=== PATIENT | male | born 1940 | race Caucasian/White ===

== ENCOUNTER 2022-01-24 10:36 | Inpatient (IN) | payer OTHER ==
[2022-01-24 11:25] LABS: Absolute Lymphocytes (CBC) 0.1 K/uL (0.7-4.9); Hematocrit 37.7 % (39.6-49.0); Lymphocytes % 4.6 % (15.3-44.8); MCV 95.7 fL (80-100); MPV 8.2 fL (7.6-11.3); RBC Red Blood Cell Count 3.94 M/uL (4.33-5.43)
[2022-01-24 11:28] LABS: Protime INR 1.04
--- NOTE | 2022-01-24 11:52 | RAD REPORT ---
EXAM DESCRIPTION: CT - Head C Spine Cap Wo Con - 01/24/2022 11:36 am CLINICAL HISTORY: Head and neck injury with chest and abdominal pain status post fall TECHNIQUE: Computed axial tomography of head, neck, chest, abdomen and pelvis obtained. IV and oral contrast not requested. Coronal and sagittal reconstruction performed. All CT scans are performed using dose optimization technique as appropriate and may include automated exposure control or mA/KV adjustment according to patient size. COMPARISON: None FINDINGS: An intracranial bleed is not seen. The ventricles are normal in caliber. An extra-axial fluid collection is not noted. No significant hy podensity within the brain. Fluid within the sinuses/mastoids is not seen. A cervical fracture is not seen. No dislocation is noted. Moderate spondylosis involves the cervical spine The evaluation of mediastinum, keith, vessels, solid organs and bowel are limited secondary to the lac k of contrast administration. A mediastinal hematoma is not noted. A pleural effusion is not seen. A lung contusion is not present. The liver,spleen, pancreas, adrenals,kidneys and bladder do not demonstrate a traumatic injury Marked osteoarthritis involves the hips. IMPRESSION: No acute intracranial abnormality is seen. A cervical fracture is not visualized. If the patient continues have symptoms to suggest intracrania l/spinal cord pathology MRI be recommended No acute traumatic abnormality involving the chest/abdomen/pelvis.
--- NOTE | 2022-01-24 11:52 | RAD REPORT ---
EXAM DESCRIPTION: Jason Single View01/24/2022 11:22 am CLINICAL HISTORY: Chest pain COMPARISON: 2014 FINDINGS: The lungs appear clear of acute infiltrate. The heart is normal size IMPRESSION: No acute abnormalities displayed
[2022-01-24] MEDS ORDERED: ASPIRIN 81 MG CHEWABLE TABLET ONE (12:00)
[2022-01-24] MEDS ORDERED: NA CHLORIDE 0.9% 500 ML ONE (12:01)
[2022-01-24] MEDS ORDERED: METOPROLOL TARTRATE 5 MG/5 ML INJ IV ONE (12:01)
[2022-01-24] MEDS ORDERED: FENTANYL CITR 100 MCG/2 ML ONE (12:01)
[2022-01-24] MEDS ORDERED: NA CHLORIDE 0.9% 1,000 ML ONE ×2 (12:01→17:38)
[2022-01-24 12:05] LABS: Albumin 3.2 g/dL (3.4-5.0); Bilirubin Direct 0.4 mg/dL (0-0.2); Bilirubin Total 0.9 mg/dL (0.2-1.0); Potassium 3.7 mmol/L (3.5-5.1); Protein, Total 6.7 g/dL (6.4-8.2)
[2022-01-24 12:07] LABS: Magnesium 1.3 mg/dL (1.8-2.4)
[2022-01-24 12:08] LABS: Troponin High Sensitivity 81.5 pg/mL (<58.9)
[2022-01-24] MEDS ORDERED: ONDANSETRON 4 MG/2 ML VIAL ONE (12:33)
[2022-01-24] MEDS ORDERED: METOPROLOL TAR 25 MG TAB ONE (12:33)
[2022-01-24] MEDS ORDERED: Magnesium Sulfate 2gm IVPB 2 G/50 ML BAG IV ONE (12:34)
[2022-01-24] MEDS ORDERED: ENOXAPARIN 100 MG/ML SYR SQ ONE (12:34)
--- NOTE | 2022-01-24 12:42 | RAD REPORT ---
EXAM DESCRIPTION: RAD - Femur Right - 01/24/2022 12:07 pm CLINICAL HISTORY: PAIN COMPARISON: No comparisons FINDINGS: Severe osteoarthritis is present affecting the right hip with [id number]. Right total kn ee arthroplasty is present. No evidence of hardware loosening or infection. No fracture evident.
--- NOTE | 2022-01-24 12:42 | RAD REPORT ---
EXAM DESCRIPTION: RAD - Tib Fib Right - 01/24/2022 12:07 pm CLINICAL HISTORY: PAIN COMPARISON: No comparisons FINDINGS: Right total knee arthroplasty is present. No hardware loosening infection suspected. No fr acture or dislocation evident.
--- NOTE | 2022-01-24 13:02 | ER ---
Nurse's Notes [facility] Name: Kerline Tucker Age: 81 yrs Sex: Male : 1940 Arrival Date: 01/24/2022 Time: 10:42 Bed 17 Private MD: Diagnosis: Chest pain, unspecified;Altered mental status, unspecified;Tachycardia, unspecified;Hypomagnesemia;Bandemia;Neutropenia, unspecified Presentation: 01/24 10:42 Chief complaint: EMS states: patients family called stating that patient was having ko1 chest pain. EMS states patient had varying blood pressures and varying O2 sats. Coronavirus screen: Vaccine status: Patient reports being unvaccinated. At this time, the client does not indicate any symptoms associated with coronavirus-19. Ebola Screen: No symptoms or risks identified at this time. Initial Sepsis Screen: Does the patient meet any 2 criteria? No. Patient's initial sepsis screen is negative. Does the patient have a suspected source of infection? No. Patient's initial sepsis screen is negative. Risk Assessment: Do you want to hurt yourself or someone else? Patient reports no desire to harm self or others. Onset of symptoms was January 24, 2022. Care prior to arrival: Medication(s) given: Oxygen administered. via nasal cannula. Transition of care: patient was not received from another setting of care. 10:42 Method Of Arrival: EMS: [facility] ko1 10:42 Acuity: MARK 3 ko1 Triage Assessment: 10:51 General: Appears uncomfortable, Behavior is calm, cooperative, appropriate for age. ko1 Pain: Complains of pain in lateral aspect of right knee and right ankle. EENT: No deficits noted. Neuro: No deficits noted. Cardiovascular: Reports chest pain, Patient's skin is warm and dry. Pulses are all present. Historical: - Allergies: 10:51 No Known Allergies; ko1 - Home Meds: 10:51 Unable to obtain [Active]; ko1 - Immunization history:: Adult Immunizations unknown. - Social history:: Smoking status: Patient denies any tobacco usage or history of. Screenin:55 Abuse screen: Denies threats or abuse. Denies injuries from another. Nutritional ko1 screening: No deficits noted. Tuberculosis screening: No symptoms or risk factors identified. Fall Risk No fall in past 12 months (0 pts). Secondary diagnosis (15 points) impaired mobility, IV access (20 points). Ambulatory Aid- None/Bed Rest/Nurse Assist (0 pts). Gait- Impaired (20 pts.). Mental Status- Overestimates/Forgets Limitations (15 pts.). Total Crooks Fall Scale indicates High Risk Score (45 or more points). Fall prevention measures have been instituted. Side Rails Up X 2 Placed Close to Nursing Station As available patient and family educated on Fall Prevention Program and Strategies. Assessment: 10:55 General: Appears uncomfortable, Behavior is calm, cooperative, appropriate for age. ko1 Pain: Complains of pain in lateral aspect of right knee and right ankle. Neuro: poor historian. Cardiovascular: Reports chest pain. Respiratory: No deficits noted. GI: No deficits noted. : No deficits noted. EENT: No deficits noted. Derm: No deficits noted. Musculoskeletal: No deficits noted. 19:50 General: Appears comfortable, Behavior is calm, cooperative. Pain: Complains of pain in ha1 chest pain and generalized pain Pain currently is 4 out of 10 on a pain scale. Alleviated by medications. Neuro: Level of Consciousness is awake, alert, obeys commands, Oriented to person, situation. Cardiovascular: Reports chest pain, Heart tones S1 S2 Capillary refill < 3 seconds Patient's skin is warm and dry. Rhythm is sinus rhythm. Respiratory: Airway is patent Trachea midline Respiratory effort is even, unlabored, Respiratory pattern is regular, symmetrical. GI: No signs and/or symptoms were reported involving the gastrointestinal system. Abdomen is non-distended, obese, Bowel sounds present X 4 quads. Patient currently denies abdominal pain. : Reports not needing to urinate in the past seven hours. Vital Signs: 10:42 BP 141 / 76; Pulse 137; Resp 22; Temp 98.9; Pulse Ox 97% ; Weight 90.72 kg; Height 5 ko1 ft. 8 in. (172.72 cm); Pain 3/10; 11:00 BP 124 / 73; Pulse 135; Temp 98.9; Pulse Ox 100% ; Pain 10/10; ko1 11:30 BP 134 / 62; Pulse 137; ko1 11:45 BP 126 / 79; Pulse 123; ko1 12:15 BP 102 / 62; Pulse 95; ko1 12:45 BP 111 / 60; Pulse 92; Resp 18; Pulse Ox 100% ; ko1 14:09 BP 92 / 46; Pulse 77; Resp 18; Pulse Ox 98% ; ko1 15:00 BP 88 / 71; Pulse 98; Resp 18; Pulse Ox 96% ; ko1 16:00 BP 103 / 64; Pulse 77; ko1 17:00 BP 101 / 44; Pulse 72; ko1 18:00 BP 119 / 78; Pulse 78; ko1 19:50 BP 115 / 75; Pulse 81; Resp 19 S; Pulse Ox 100% on 2 lpm NC; ha1 10:42 Body Mass Index 30.41 (90.72 kg, 172.72 cm) ko1 ED Course: 10:42 Patient arrived in ED. tw2 10:42 Minda Blankenship, SHEYLA is Primary Nurse. ko1 10:51 Triage completed. ko1 10:55 Jose Miguel Billingsley MD is Attending Physician. [facility] 10:55 Patient has correct armband on for positive identification. Fall risk band placed. Bed ko1 in low position. Call light in reach. Side rails up X2. Client placed on continuous cardiac and pulse oximetry monitoring. NIBP monitoring applied. stave bolt equalizer on. Turned to back. 11:00 Inserted saline lock: 18 gauge in right antecubital area, using aseptic technique. ko1 Blood collected. 11:44 Acetaminophen Sent. ko1 11:44 ETOH Level Sent. ko1 11:44 Ptt, Activated Sent. ko1 11:44 Salicylate Sent. ko1 11:44 SARS-COV-2 RT PCR (Document "Date of Onset" if Symptomatic) Sent. ko1 11:44 Lipase Sent. ko1 11:44 Basic Metabolic Panel Sent. ko1 11:44 CBC with Diff Sent. ko1 11:44 LFT's Sent. ko1 11:44 Magnesium Sent. ko1 11:44 NT PRO-BNP Sent. ko1 11:44 PT-INR Sent. ko1 11:45 Troponin HS Sent. ko1 13:01 Dillon Santos is Hospitalizing Provider. [facility] 13:05 pt son......kerline tucker jr, . bd 15:01 Lactate Sent. ko1 17:19 Blood Culture Adult (2) Sent. ko1 21:10 No provider procedures requiring assistance completed. Patient admitted, IV remains in vc1 place. Administered Medications: 12:19 Drug: Lopressor (metoprolol) 5 mg Route: IVP; Site: right antecubital; ko1 12:20 Drug: NS 0.9% 500 ml Route: IV; Rate: bolus; Site: right antecubital; ko1 12:20 Drug: Aspirin 81 mg Route: PO; ko1 12:20 Drug: fentaNYL (PF) 25 mcg Route: IVP; Site: right antecubital; ko1 12:20 Drug: Zofran (Ondansetron) 4 mg Route: IVP; Site: right antecubital; ko1 12:25 Drug: Lopressor (metoprolol TARTRATE)) 25 mg Route: PO; ko1 12:32 Drug: Lovenox (enoxaparin) 1 mg/kg {Note: 90mg.} Route: Sub-Q; Site: right lower ko1 abdomen; 12:32 Drug: Magnesium Sulfate 2 grams Route: IVPB; Infused Over: 1 hrs; Site: right ko1 antecubital; 14:57 Drug: NS 0.9% 500 ml Route: IV; Rate: bolus; Site: right antecubital; ko1 16:23 Drug: NS 0.9% 500 ml Route: IV; Rate: bolus; Site: right antecubital; ko1 17:22 Drug: Rocephin (cefTRIAXone) 1 grams Route: IV; Rate: per protocol; Site: right ko1 antecubital; 17:29 Drug: NS 0.9% 1000 ml Route: IV; Rate: 125 ml/hr; Site: right antecubital; ko1 20:55 Not Given (Hemodynamic Parameters): Lopressor (metoprolol) 5 mg IVP once; Hold for SBP ha1 <100 or HR <60. Medication: 11:57 VIS not applicable for this client. ko1 Outcome: 13:02 Decision to Hospitalize by Provider. nancy 21:10 Admitted to Tele accompanied by nurse, via stretcher, room 417, [facility] to [facility] Bedside report given 21:10 Condition: good 21:10 Instructed on the need for admit. 21:11 Patient left the ED. 1 Signatures: Yuliana Valladares Corey, MD MD cha Wise, Tara, RN RN tw2 Nya Acharya RN RN 1 Barb Vanessa RN RN ha1 Minda Blankenship RN RN ko1 Corrections: (The following items were deleted from the chart) 11:58 11:30 Inserted saline lock: 18 gauge in right antecubital area, using aseptic margo technique. Blood collected. ko1 13:07 13:00 BP 124 / 73; Pulse 135bpm; Pulse Ox 100%; Temp 98.9F; Pain 10/10; ko1 ko1 13:21 11:44 THYROID STIMULAT HORMONE+C.LAB.HEIDE drawn and sent. ko1 EDMS
--- NOTE | 2022-01-24 13:03 | EDPHYS ---
Physician Documentation [facility] Name: Christina Tse Age: 81 yrs Sex: Male : 1940 Arrival Date: 01/24/2022 Time: 10:42 Bed 17 Private MD: ED Physician Jose Miguel Billingsley HPI: 01/24 11:30 This 81 yrs old Male presents to ER via EMS with complaints of ams,cp, right nancy leg pain. 11:30 The patient presents with decreased range of motion. The complaints affect the lateral nancy aspect of right thigh, lateral aspect of right knee, lateral aspect of right calf, right quadriceps, right knee and right rosado. Context: The problem was sustained at an unknown site. Onset: The symptoms/episode began/occurred at an unknown time. Modifying factors: The symptoms are alleviated by remaining still. Associated signs and symptoms: Pertinent positives: weakness. The patient or guardian reports chest pain that is located primarily in the anterior chest wall, bilaterally. ams, pain all over. The patient presents with confusion, decreased mental status, trouble concentrating. Possible causes: CVA or TIA, low blood sugar, seizure. The pain does not radiate. Associated signs and symptoms: The patient has no apparent associated signs or symptoms. Treatment prior to arrival includes: no previous treatment. Associated signs and symptoms: Pertinent positives: cough, dizziness, lightheadedness. The chest pain is described as aching. Historical: - Allergies: 10:51 No Known Allergies; ko1 - Home Meds: 10:51 Unable to obtain [Active]; ko1 - Immunization history:: Adult Immunizations unknown. - Social history:: Smoking status: Patient denies any tobacco usage or history of. ROS: 11:34 Constitutional: Negative for fever, chills, and weight loss, Eyes: Negative for injury, nancy pain, redness, and discharge, ENT: Negative for injury, pain, and discharge, Neck: Negative for injury, pain, and swelling, Back: Negative for injury and pain, : Negative for injury, bleeding, discharge, and swelling, Skin: Negative for injury, rash, and discoloration, Psych: Negative for depression, anxiety, suicide ideation, homicidal ideation, and hallucinations, Allergy/Immunology: Negative for hives, rash, and allergies, Endocrine: Negative for neck swelling, polydipsia, polyuria, polyphagia, and marked weight changes, Hematologic/Lymphatic: Negative for swollen nodes, abnormal bleeding, and unusual bruising. 11:34 Cardiovascular: Positive for chest pain. 11:34 Respiratory: Positive for shortness of breath. 11:34 Abdomen/GI: Positive for abdominal pain, of the suprapubic area, right upper quadrant, left upper quadrant, right lower quadrant and left lower quadrant. 11:34 MS/extremity: Positive for decreased range of motion, pain, tenderness, of the right leg. Exam: 11:34 Constitutional: This is a well developed, well nourished patient who is awake, alert, nancy and in no acute distress. Head/Face: Normocephalic, atraumatic. Eyes: Pupils equal round and reactive to light, extra-ocular motions intact. Lids and lashes normal. Conjunctiva and sclera are non-icteric and not injected. Cornea within normal limits. Periorbital areas with no swelling, redness, or edema. ENT: Nares patent. No nasal discharge, no septal abnormalities noted. Tympanic membranes are normal and external auditory canals are clear. Oropharynx with no redness, swelling, or masses, exudates, or evidence of obstruction, uvula midline. Mucous membranes moist. Neck: Trachea midline, no thyromegaly or masses palpated, and no cervical lymphadenopathy. Supple, full range of motion without nuchal rigidity, or vertebral point tenderness. No Meningismus. Chest/axilla: Normal chest wall appearance and motion. Nontender with no deformity. No lesions are appreciated. Respiratory: Lungs have equal breath sounds bilaterally, clear to auscultation and percussion. No rales, rhonchi or wheezes noted. No increased work of breathing, no retractions or nasal flaring. Abdomen/GI: Soft, non-tender, with normal bowel sounds. No distension or tympany. No guarding or rebound. No evidence of tenderness throughout. Back: No spinal tenderness. No costovertebral tenderness. Full range of motion. Skin: Warm, dry with normal turgor. Normal color with no rashes, no lesions, and no evidence of cellulitis. Psych: Awake, alert, with orientation to person, place and time. Behavior, mood, and affect are within normal limits. 11:34 Neck: ROM/movement: is normal, no acute changes, limited range of motion, is not appreciated, Meningeal signs: are not present, Kernig's sign is negative, Brudzinski's sign is negative, nuchal rigidity, is not appreciated. 11:34 Cardiovascular: Rate: tachycardic, Rhythm: regular, Pulses: Pulses are 4+ in bilateral radial, brachial, femoral, popliteal, posterior tibial and and dorsalis pedis arteries.. Heart sounds: normal, Edema: is not appreciated, JVD: is not appreciated. 11:34 ECG was reviewed by the Attending Physician. 11:34 Musculoskeletal/extremity: ROM: limited active range of motion, limited passive range of motion, limited active range of motion due to pain, limited passive range of motion due to pain, Circulation is intact in all extremities. Sensation intact. Compartment Syndrome exam of affected extremity: is normal. DVT Exam: no swelling, no tenderness, negative Homans' sign noted on exam, no appreciated bluish discoloration, no erythema, no increased warmth, pain. Vital Signs: 10:42 BP 141 / 76; Pulse 137; Resp 22; Temp 98.9; Pulse Ox 97% ; Weight 90.72 kg; Height 5 ko1 ft. 8 in. (172.72 cm); Pain 3/10; 11:00 BP 124 / 73; Pulse 135; Temp 98.9; Pulse Ox 100% ; Pain 10/10; ko1 11:30 BP 134 / 62; Pulse 137; ko1 11:45 BP 126 / 79; Pulse 123; ko1 12:15 BP 102 / 62; Pulse 95; ko1 12:45 BP 111 / 60; Pulse 92; Resp 18; Pulse Ox 100% ; ko1 14:09 BP 92 / 46; Pulse 77; Resp 18; Pulse Ox 98% ; ko1 15:00 BP 88 / 71; Pulse 98; Resp 18; Pulse Ox 96% ; ko1 16:00 BP 103 / 64; Pulse 77; ko1 17:00 BP 101 / 44; Pulse 72; ko1 18:00 BP 119 / 78; Pulse 78; ko1 19:50 BP 115 / 75; Pulse 81; Resp 19 S; Pulse Ox 100% on 2 lpm NC; ha1 10:42 Body Mass Index 30.41 (90.72 kg, 172.72 cm) ko1 MDM: 10:55 Patient medically screened. nancy 11:43 Differential diagnosis: contusion, tendonitis, abnormal EKG, acute pericarditis, nancy anxiety, coronary artery disease Cholelithiasis costochondritis, pancreatitis, peptic ulcer disease, stable angina, unstable angina. Differential Diagnosis altered mental status. HEART Score: History: Slightly Suspicious (0), ECG: Non specific repolarization disturbance / LBTB / PM (1), Age: > or = 65 years (2), Risk Factors: > or = 3 Risk factors for atherosclerotic disease (2), [Hypercholesterolemia] [Hypertension] [+ Family HX] [Obesity] Troponin: < or = 1 x Normal Limit (0). Differential Diagnosis: CVA, electrolyte abnormality, alcohol intoxication, intracranial bleed, seizure, TIA, UTI, volume depletion. The patient was given aspirin in the Emergency Department. The patient's deep vein thrombosis risk score was calculated as follows: Total Score: 0. This patient was found to be at low risk for a deep vein thrombosis by using the Well's assessment criteria. The patient's pulmonary embolism risk score was calculated as follows: the patients heart rate is greater than 100 beats per minute (1.5 Pts) patient has experienced immobilization or surgery in the last four weeks (1.5 Pts) Total Score: 3-6 points. This patient was found to be at moderate risk for a pulmonary embolism by using the Well's assessment criteria. JAN Risk Score: 1 - patient's age is greater or equal to 65 years, 1 - Three or more CAD risk factors, 1- Known CAD, TOTAL SCORE = 3. Data reviewed: vital signs, nurses notes, lab test result(s), EKG, radiologic studies, CT scan, plain films. Data interpreted: log hauler: rate is 137 beats/min, rhythm is regular, Pulse oximetry: on room air is 97 %. Test interpretation: by ED physician or midlevel provider: ECG, plain radiologic studies. 01/24 10:54 Order name: Basic Metabolic Panel 01/24 10:54 Order name: CBC with Diff 01/24 10:54 Order name: LFT's 01/24 10:54 Order name: Magnesium 01/24 10:54 Order name: NT PRO-BNP 01/24 10:54 Order name: PT-INR 01/24 10:54 Order name: Troponin HS 01/24 10:54 Order name: Lipase 01/24 10:54 Order name: SARS-COV-2 RT PCR (Document "Date of Onset" if Symptomatic) [facility] 01/24 11:20 Order name: Acetaminophen; Complete Time: 14:31 [facility] 01/24 11:20 Order name: ETOH Level; Complete Time: 14:31 [facility] 01/24 11:20 Order name: Ptt, Activated; Complete Time: 14:31 [facility] 01/24 11:20 Order name: Salicylate; Complete Time: 14:31 [facility] 01/24 11:20 Order name: Urine Drug Screen [facility] 01/24 11:28 Order name: Protime (+INR); Complete Time: 11:57 [facility] 01/24 11:47 Order name: CBC with Automated Diff [facility] 01/24 11:58 Order name: SARS-COV-2 RT PCR; Complete Time: 12:09 [facility] 01/24 12:08 Order name: Basic Metabolic Panel; Complete Time: 12:09 [facility] 01/24 12:08 Order name: Liver (Hepatic) Function; Complete Time: 12:09 [facility] 01/24 12:08 Order name: Troponin High Sensitivity; Complete Time: 12:09 [facility] 01/24 12:08 Order name: NT PRO-BNP; Complete Time: 12:09 [facility] 01/24 12:08 Order name: Magnesium; Complete Time: 12:09 [facility] 01/24 12:08 Order name: Lipase; Complete Time: 12:09 [facility] 01/24 13:21 Order name: Thyroid Stimulating Hormone; Complete Time: 14:31 [facility] 01/24 13:27 Order name: Manual Differential [facility] 01/24 14:37 Order name: Lactate [facility] 01/24 15:50 Order name: Lactate; Complete Time: 17:22 [facility] 01/24 15:55 Order name: Blood Culture Adult (2) [facility] 01/24 19:19 Order name: Lactate Sepsis 2 HR Follow-up [facility] 01/24 10:54 Order name: XRAY Chest (1 view) [facility] 01/24 10:54 Order name: EKG; Complete Time: 10:55 [facility] 01/24 10:54 Order name: Cardiac monitoring; Complete Time: 11:45 [facility] 01/24 10:54 Order name: EKG - Nurse/Tech; Complete Time: 11:45 [facility] 01/24 10:54 Order name: IV Saline Lock; Complete Time: 11:45 [facility] 01/24 10:54 Order name: Labs collected and sent; Complete Time: 11:45 [facility] 01/24 10:54 Order name: O2 Per Protocol; Complete Time: 11:45 [facility] 01/24 10:54 Order name: O2 Sat Monitoring; Complete Time: 11:45 [facility] 01/24 11:20 Order name: CT Traumagram (Head C Spine CAP wo con) [facility] 01/24 11:21 Order name: Femur Right XRAY [facility] 01/24 11:21 Order name: Tib Fib Right XRAY [facility] 01/24 11:46 Order name: Extremity Venous W Compression Bilateral US bd 01/24 11:53 Order name: CT; Complete Time: 11:57 [facility] 01/24 11:53 Order name: RAD; Complete Time: 11:57 [facility] 01/24 12:42 Order name: RAD; Complete Time: 12:58 [facility] 01/24 12:43 Order name: RAD; Complete Time: 12:58 [facility] 01/24 13:00 Order name: EKG; Complete Time: 13:00 [facility] 01/24 13:10 Order name: Extrem Venous W Compress Nacho; Complete Time: 14:31 [facility] 01/24 20:25 Order name: Urine Dipstick-Ancillary [facility] 01/24 10:54 Order name: Urine Dipstick-Ancillary (obtain specimen) [facility] 01/24 11:20 Order name: Suicide Screening ([place]); Complete Time: 11:45 [facility] 01/24 13:00 Order name: EKG - Nurse/Tech; Complete Time: 14:08 [facility] EC:34 Rate is 136 beats/min. Rhythm is regular. QRS [place] is Normal. SD interval is normal. [facility] QRS interval is normal. QT interval is normal. No Q waves. T waves are Normal. No ST changes noted. Clinical impression: NSR w/ Non-specific ST/T Changes, Sinus tachycardia, and No evidence of ischemia. Interpreted by me. Reviewed by me. Administered Medications: 12:19 Drug: Lopressor (metoprolol) 5 mg Route: IVP; Site: right antecubital; ko1 12:20 Drug: NS 0.9% 500 ml Route: IV; Rate: bolus; Site: right antecubital; ko1 12:20 Drug: Aspirin 81 mg Route: PO; ko1 12:20 Drug: fentaNYL (PF) 25 mcg Route: IVP; Site: right antecubital; ko1 12:20 Drug: Zofran (Ondansetron) 4 mg Route: IVP; Site: right antecubital; ko1 12:25 Drug: Lopressor (metoprolol TARTRATE)) 25 mg Route: PO; ko1 12:32 Drug: Lovenox (enoxaparin) 1 mg/kg {Note: 90mg.} Route: Sub-Q; Site: right lower ko1 abdomen; 12:32 Drug: Magnesium Sulfate 2 grams Route: IVPB; Infused Over: 1 hrs; Site: right ko1 antecubital; 14:57 Drug: NS 0.9% 500 ml Route: IV; Rate: bolus; Site: right antecubital; ko1 16:23 Drug: NS 0.9% 500 ml Route: IV; Rate: bolus; Site: right antecubital; ko1 17:22 Drug: Rocephin (cefTRIAXone) 1 grams Route: IV; Rate: per protocol; Site: right ko1 antecubital; 17:29 Drug: NS 0.9% 1000 ml Route: IV; Rate: 125 ml/hr; Site: right antecubital; ko1 20:55 Not Given (Hemodynamic Parameters): Lopressor (metoprolol) 5 mg IVP once; Hold for SBP ha1 <100 or HR <60. Disposition Summary: 01/24/22 13:02 Hospitalization Ordered Hospitalization Status: Inpatient Admission nancy Provider: Dillon Santos cha Location: Telemetry/MedSurg (Inpatient) nancy Condition: Fair nancy Problem: new nancy Symptoms: have improved nancy Bed/Room Type: Standard nancy Room Assignment: [id number](01/24/22 20:08) eb1 Diagnosis - Chest pain, unspecified nancy - Altered mental status, unspecified nancy - Tachycardia, unspecified nancy - Hypomagnesemia nancy - Bandemia nancy - Neutropenia, unspecified nancy Forms: - Medication Reconciliation Form nancy - SBAR form nancy Signatures: Dispatcher [employer] EDDahlia Shirley RN RN dw Anderson, Corey, MD MD cha Basinger, Emily, RN RN eb1 Minda Blankenship RN RN ko1 Barb Vanessa RN ha1 Corrections: (The following items were deleted from the chart) 13:21 11:25 THYROID STIMULAT HORMONE+C.LAB.BRZ ordered. [facility] EDMS 19:48 13:02 nancy dw 20:08 19:48 418 dw eb1
[2022-01-24 13:26] LABS: Platelet Estimate ADEQ; Platelets, Giant PRESENT
[2022-01-24 13:27] LABS: Blood Morphology Comment NOT SEEN (NOT SEEN)
--- NOTE | 2022-01-24 14:19 | RAD REPORT ---
EXAM DESCRIPTION: US - Extrem Venous W Compress Nacho - 01/24/2022 2:02 pm CLINICAL HISTORY: LOWER ext Bilateral leg edema and swelling. COMPARISON: No comparisons TECHNIQUE: Real-time sonographic interrogation of the left and right lower extremity deep venous sys tems was performed. FINDINGS: Normal compressibility, flow augmentation, phasic flow and spontaneous flow is identified in both the left and right lower extremity deep venous systems. IMPRESSION: No sonographic evidence of left or right lower extremity deep venous thrombosis.
[2022-01-24] MEDS ORDERED: CEFTRIAXONE 1000 MG/VIAL ONE (17:31)
[2022-01-24] MEDS ORDERED: NA CHLORIDE 0.9% 100 ML ONE (17:32)
--- NOTE | 2022-01-24 17:53 | P.HP ---
Certification for Inpatient Patient admitted to: Inpatient With expected LOS: >2 Midnights Practitioner: I am a practitioner with admitting privileges, knowledge of patient current condition, hospital course, and medical plan of care. Services: Services provided to patient in accordance with Admission requirements found in Title 42 Section 412.3 of the Code of Federal Regulations Patient History Date of Service: 01/24/22 Reason for admission: Altered mental status History of Present Illness: 81-year-old gentleman with a history of hypertension, chronic pain was brought to the emergency department by ambulance because patient was found confused. There is a report of chest pain. Patient is confused and cannot provide any history. Patient noted to be afebrile in the ED, blood work shows leukopenia, with 15% bands. 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 Lactic acid borderline elevated. Chest x-ray shows no acute infiltrate. Patient given IV fluid and antibiotics for suspected sepsis. Troponin is mildly elevated. Patient is hospitalized for further management. - Past Medical/Surgical History -: Hypertension -: Osteoarthritis -: Right knee replacement - Social History Smoking Status: Unknown if ever smoked Alcohol use: No Place of Residence: Home Review of Systems is unable to be obtained (Due to altered mental status) Physical Examination - Physical Exam General: In no apparent distress, Confused, Obese HEENT: Atraumatic, Normocephalic, PERRLA, Mucous membr. moist/pink, EOMI, Sclerae nonicteric Neck: Supple, JVD not distended Respiratory: Clear to auscultation bilaterally, Normal air movement Cardiovascular: No edema, Regular rate/rhythm, Normal S1 S2, No murmurs Capillary refill: <2 Seconds Gastrointestinal: Normal bowel sounds, Soft and benign, Non-distended, No tenderness Musculoskeletal: No swelling Integumentary: No rashes Neurological: Normal speech, Normal strength at 5/5 x4 extr Lymphatics: No axilla or inguinal lymphadenopathy - Studies Laboratory Data (last 24 hrs) 01/24/22 11:05: APTT 24.9 01/24/22 11:05: PT 11.5, INR 1.04 01/24/22 11:05: WBC 1.90 L*, Hgb 13.2 L, Hct 37.7 L, Plt Count 258 01/24/22 11:05: Sodium 136, Potassium 3.7, BUN 17, Creatinine 0.91, Glucose 97, Magnesium 1.3 L*, Total Bilirubin 0.9, AST 26, ALT 23, Alkaline Phosphatase 93, Lipase 78 Assessment and Plan - Problems (Diagnosis) (1) AMS (altered mental status) Current Visit: Yes Status: Acute (2) Leukopenia Current Visit: Yes Status: Acute (3) Sepsis Current Visit: Yes Status: Acute (4) Elevated troponin Current Visit: Yes Status: Acute - Plan Admit patient to the medical floor. Hydrate with IV normal saline Broad-spectrum antibiotics Follow cultures obtained in the ED. Check UA. Trend troponin given mildly elevated troponin and reported chest pain Aspirin. Avoid all psychotropic medications for now. Diet as tolerated. Obtain echocardiogram. - Advance Directives Does patient have a Living Will: No Does patient have a Durable POA for Healthcare: No
[2022-01-24 20:25] LABS: Urine Blood 2+ (Negative); Urine Glucose Negative (Negative); Urine Protein 1+ (Negative); Urine Specific Gravity 1.015 (1.005-1.030); Urine pH 5.5 (5.0-7.0)
[2022-01-24 20:58] LABS: Barbiturates NEGATIVE (NEGATIVE); Benzodiazepines NEGATIVE (NEGATIVE); Cocaine NEGATIVE (NEGATIVE); METHAMPHETAM NEGATIVE (NEGATIVE); Methadone NEGATIVE (NEGATIVE); Opiates NEGATIVE (NEGATIVE); Phencyclidine NEGATIVE (NEGATIVE); THC Cannibis NEGATIVE (NEGATIVE)
[2022-01-24] MEDS: NA CHLORIDE 0.9% 1,000 ML IV SCH (21:31)
[2022-01-24] MEDS ORDERED: ONDANSETRON 4 MG/2 ML VIAL IV PRN (21:31)
[2022-01-24] MEDS ORDERED: VANCOMYCIN 1.25 GM in NA CHLORIDE 0.9% 250 ML IVPB SCH (21:31)
[2022-01-24 22:01] VITALS: BMI 30.4
[2022-01-24] MEDS: CEFEPIME 1 GM in NA CHLORIDE 0.9% 100 ML IV SCH (22:55)
[2022-01-24] MEDS: ALBUTEROL 2.5 MG/3 ML NEB SOL NEB PRN (23:00)
[2022-01-24] MEDS ORDERED: NA CHLORIDE 0.9% 1,000 ML IV ONE (23:16)
[2022-01-24] MEDS ORDERED: VANCOMYCIN 1 GM/VIAL ONE (23:38)
[2022-01-24] MEDS ORDERED: VANCOMYCIN 500 MG/VIAL ONE (23:42)
[2022-01-24] MEDS ORDERED: NA CHLORIDE 0.9% 250 ML ONE (23:44)
[2022-01-24] MEDS: ENOXAPARIN 100 MG/ML SYR SQ SCH (23:58)
[2022-01-25] MEDS ORDERED: NA CHLORIDE 0.9% 250 ML ONE (00:21)
[2022-01-25 02:37] LABS: Specific Gravity > 1.030 (1.005-1.030); Urine Bacteria <20 /HPF (<20); Urine Bilirubin NEGATIVE (Negative); Urine Blood Negative (Negative); Urine Clarity Clear (Clear); Urine Color Light-Yellow (Yellow); Urine Glucose NEGATIVE (Negative); Urine Mucus 1+ /HPF (None Seen); Urine Protein TRACE (Negative); Urine RBC <5 /HPF (None Seen); Urine Urobilinogen Normal (Normal); Urine pH 5.5 (5.0-7.0)
[2022-01-25] MEDS: ACETAMINOPHEN 500 MG TAB PO PRN (04:24)
[2022-01-25 06:07] LABS: Albumin 2.6 g/dL (3.4-5.0); Bilirubin Total 0.6 mg/dL (0.2-1.0); Phosphorus 2.8 mg/dL (2.5-4.9); Potassium 4.4 mmol/L (3.5-5.1); Protein, Total 5.9 g/dL (6.4-8.2); Thyroid Stimulating Hormone 1.81 uIU/mL (0.360-3.740)
[2022-01-25 06:16] LABS: Absolute Lymphocytes (CBC) 0.3 K/uL (0.7-4.9); Hematocrit 31.3 % (39.6-49.0); Lymphocytes % 1.1 % (15.3-44.8); MCV 94.7 fL (80-100); MPV 8.6 fL (7.6-11.3); RBC Red Blood Cell Count 3.31 M/uL (4.33-5.43)
[2022-01-25 06:19] LABS: Troponin High Sensitivity 129.8 pg/mL (<58.9)
[2022-01-25 08:10] LABS: Blood Morphology Comment NOT SEEN (NOT SEEN); Platelet Estimate ADEQ
[2022-01-25] MEDS ORDERED: ENOXAPARIN 40 MG/0.4 ML SQ SCH (09:00)
[2022-01-25] MEDS: CEFEPIME 1 GM in NA CHLORIDE 0.9% 100 ML IV SCH (09:00)
[2022-01-25] MEDS: ASPIRIN EC 81 MG TAB PO SCH (10:00)
[2022-01-25] MEDS: ENOXAPARIN 100 MG/ML SYR SQ SCH ×2 (10:00→20:37)
[2022-01-25] MEDS: NA CHLORIDE 0.9% 1,000 ML IV SCH ×2 (10:00→17:02)
[2022-01-25] MEDS ORDERED: NA CHLORIDE 0.9% 100 ML ONE ×2 (10:01→20:22)
[2022-01-25] MEDS ORDERED: CEFEPIME 1 GM/VIAL ONE (10:02)
--- NOTE | 2022-01-25 13:39 | EKG ---
Test Date: 2022-01-24 Test Time: 14:23:33 Gas Pipe Layer: LOAN MEASUREMENT RESULTS: Intervals: Rate: 74 DE: 156 QRSD: 144 QT: 396 QTc: 439 [place]: P: 44 DE: 156 QRS: 2 T: -2 INTERPRETIVE STATEMENTS: Normal sinus rhythm Right bundle branch block Abnormal ECG Compared to ECG 12/25/2012 11:08:48 Right bundle-branch block now present Sinus bradycardia no longer present Electronically Signed On 01-25-22 13:37:58 CDT by Isai Coelho
--- NOTE | 2022-01-25 13:40 | EKG ---
Test Date: 2022-01-24 Test Time: 10:51:31 Ornamental Machine Operator: ROLO MEASUREMENT RESULTS: Intervals: Rate: 136 UT: 140 QRSD: 130 QT: 298 QTc: 448 [place]: P: 24 UT: 140 QRS: 18 T: -24 INTERPRETIVE STATEMENTS: Sinus tachycardia Right bundle branch block T wave abnormality, consider inferolateral ischemia Abnormal ECG Compared to ECG 12/25/2012 11:08:48 Right bundle-branch block now present T-wave abnormality now present Possible ischemia now present Sinus bradycardia no longer present Electronically Signed On 01-25-22 13:38:18 CDT by Isai Coelho
--- NOTE | 2022-01-25 16:44 | P.PN ---
Subjective Date of Service: 01/25/22 Chief Complaint: Altered mental status Patient remained confused. WBC trended up markedly. No recorded fever. Physical Examination - Vital Signs Temperature: 97.5 F Blood Pressure: 113/55 Pulse: 90 Respirations: 18 Pulse Ox (%): 96 - Studies Microbiology Data (last 24 hrs): 01/24/22 17:00 Blood - Blood Anaerobic Blood Culture - Final 01/24/22 17:10 Blood - Blood Anaerobic Blood Culture - Final Assessment And Plan - Current Problems (Diagnosis) (1) AMS (altered mental status) Current Visit: Yes Status: Acute (2) Leukopenia Current Visit: Yes Status: Acute (3) Sepsis Current Visit: Yes Status: Acute (4) Elevated troponin Current Visit: Yes Status: Acute - Plan Physical Exam General: In no apparent distress, Confused, Obese HEENT:Mucous membr. moist/pink, Sclerae nonicteric Neck: Supple, JVD not distended Respiratory: Clear to auscultation bilaterally, Normal air movement Cardiovascular: No edema, Regular rate/rhythm, Normal S1 S2, No murmurs Gastrointestinal: Normal bowel sounds, Soft and benign, Non-distended, No tenderness Musculoskeletal: No swelling Integumentary: No rashes Neurological: Normal speech, Normal strength at 5/5 x4 extr Plan: Continue IV hydration with normal saline. Continue broad-spectrum antibiotics-IV vancomycin and IV cefepime Follow cultures obtained in the ED. UA is negative for UTI. Troponins elevated but trended flat. Elevated troponin likely related to sepsis. Continue aspirin and full dose Lovenox Avoid all psychotropic medications for now. Diet as tolerated. Echocardiogram is pending. Monitor CBC to follow leukocytosis and bandemia.
[2022-01-25] MEDS: CEFEPIME 2 GM in NA CHLORIDE 0.9% 100 ML IV SCH (20:37)
[2022-01-25] MEDS: GABAPENTIN 300 MG CAP PO SCH (21:13)
[2022-01-25] MEDS: VANCOMYCIN 1.5 GM in NA CHLORIDE 0.9% 500 ML IVPB SCH (22:40)
[2022-01-26] MEDS: NA CHLORIDE 0.9% 1,000 ML IV SCH ×3 (02:38→19:03)
[2022-01-26 05:51] LABS: Absolute Lymphocytes (CBC) 1.1 K/uL (0.7-4.9); Hematocrit 31.6 % (39.6-49.0); Lymphocytes % 5.9 % (15.3-44.8); MCV 94.3 fL (80-100); RBC Red Blood Cell Count 3.35 M/uL (4.33-5.43)
[2022-01-26 06:03] LABS: Albumin 2.4 g/dL (3.4-5.0); Bilirubin Total 0.6 mg/dL (0.2-1.0); Potassium 3.7 mmol/L (3.5-5.1); Protein, Total 5.8 g/dL (6.4-8.2)
[2022-01-26] MEDS ORDERED: POTASSIUM CL SA 10 MEQ TAB PO ONE (09:00)
[2022-01-26] MEDS: CEFEPIME 2 GM in NA CHLORIDE 0.9% 100 ML IV SCH ×2 (09:55→20:35)
[2022-01-26] MEDS: ASPIRIN EC 81 MG TAB PO SCH (09:56)
[2022-01-26] MEDS: ENOXAPARIN 100 MG/ML SYR SQ SCH ×2 (09:56→20:34)
[2022-01-26] MEDS: GABAPENTIN 300 MG CAP PO SCH ×2 (09:56→20:35)
--- NOTE | 2022-01-26 14:20 | P.PN ---
Subjective Date of Service: 01/26/22 Chief Complaint: Altered mental status Patient's mental status is improved though slightly confused. WBC is trending down No recorded fever. Patient complaining of uncontrolled pain in the right knee. Physical Examination - Vital Signs Temperature: 97.8 F Blood Pressure: 115/75 Pulse: 81 Respirations: 19 Pulse Ox (%): 97 - Studies Microbiology Data (last 24 hrs): 01/24/22 17:00 Blood - Blood Anaerobic Blood Culture - Final 01/24/22 17:10 Blood - Blood Anaerobic Blood Culture - Final Assessment And Plan - Current Problems (Diagnosis) (1) AMS (altered mental status) Current Visit: Yes Status: Acute (2) Leukopenia Current Visit: Yes Status: Acute (3) Sepsis Current Visit: Yes Status: Acute (4) Elevated troponin Current Visit: Yes Status: Acute - Plan Physical Exam General: In no apparent distress, Confused, Obese Neck: Supple Respiratory: Clear to auscultation bilaterally, Normal air movement Cardiovascular: No edema, Regular rate/rhythm, Normal S1 S2, No murmurs Gastrointestinal: Normal bowel sounds, Soft and benign, Non-distended, No tenderness Musculoskeletal: No swelling Integumentary: No rashes Neurological: Normal speech, Normal strength at 5/5 x4 extr Plan: Continue IV fluid. Diet as tolerated Continue IV vancomycin and IV cefepime Cultures: No growth to date UA is negative for UTI. Troponins elevated but trended flat. Elevated troponin likely related to sepsis. Continue aspirin and full dose Lovenox Patient started on gabapentin for pain. Echocardiogram done and the result is pending. Monitor CBC to follow leukocytosis.
[2022-01-26 15:46] LABS: Specific Gravity 1.013 (1.005-1.030); Urine Bilirubin NEGATIVE (Negative); Urine Blood 2+ (Negative); Urine Clarity Clear (Clear); Urine Color Light-Yellow (Yellow); Urine Glucose NEGATIVE (Negative); Urine Mucus Slight /HPF (None Seen); Urine Protein NEGATIVE (Negative); Urine RBC >50 /HPF (None Seen); Urine Urobilinogen Normal (Normal); Urine WBC Clump Rare /HPF (None Seen)
--- NOTE | 2022-01-26 17:18 | CON ---
History Of Present Illness: This is an 81-year-old male, coming in after having a syncopal attack. Patient ended up calling his son who works as an EMT. Patient was brought in. According to the note s, the patient was initially confused on arrival via ambulance and reported chest pain. Does not hav e any significant history of any other medical problem other than hypertension, osteoarthritis, and r eplacement of both knees. Patient denies any chest pain, abdominal pain, constipation, or diarrhea. Currently, getting vancomycin and cefepime. Cultures are negative to date. Chest x-ray is negative for any infiltrate. Past Medical History: Hypertension, osteoarthritis, bilateral knee replacements done at the [facility]. Social History: Nonsmoker. Nondrinker. Family History: Noncontributory. Medications: Vancomycin and cefepime. See MAR for other medications. Allergies: NO KNOWN DRUG ALLERGIES. Review of Systems: 10-point review was performed. Physical Examination: General: This is an 81-year-old male, lying in bed, not in any acute cardiopulmonary distress. Vital Signs: Temperature 97.5, pulse 85, respirations 18, blood pressure 152/69. HEENT: Unremarkable. Neck: Supple. Lungs: Basal crackles. Heart: S1, S2. Regular. Abdomen: Soft, nontender. Bowel sounds present. Extremities: No edema. Laboratory Data: WBC 19.1; on initial examination, it was 1.9. Hemoglobin 11.2, platelets are 177 w ith the right side shift. Chemistry shows sodium 135, potassium 3.7, chloride 104, bicarb 25, BUN 19 , creatinine 0.7, glucose is 83. Lactic acid is 5. Albumin level is 2.4. Blood cultures are negati ve to date for 24 hours. Doppler of the lower extremities negative. Right tibia-fibula x-ray is neg ative for any fractures. Femur x-ray is negative. Head CT and spine and chest, abdominal and pelvis area shows no acute intracranial abnormalities. Cervical fracture is not visualized. No acute trau matic abnormalities noted in chest and abdomen. Chest x-ray, which shows no infiltrate. Assessment And Plan: This is an 81-year-old male coming in with initially leukopenia and elevated la ctic acid and syncopal attack, elevated troponin, cardiac versus infectious. 24-hour blood cultures are negative. We will continue empiric antibiotic treatment. Patient has clinically improved signif icantly. We will also order procalcitonin to rule out bacterial infection and lactic acid. Monitor patient. Discontinue vancomycin. Continue cefepime for now. Can be switched to oral antibiotic onc e patient is stabilized. Continue to monitor WBC and fever trends. We will follow patient closely. Thank you, Dr. Santos, for consult. NF/MODL Voice ID: [id number] Report ID: [id number]
[2022-01-26] MEDS: ACETAMINOPHEN 500 MG TAB PO PRN (20:38)
[2022-01-26] MEDS: ALBUTEROL 2.5 MG/3 ML NEB SOL NEB PRN (20:40)
[2022-01-26] MEDS: VANCOMYCIN 1.5 GM in NA CHLORIDE 0.9% 500 ML IVPB SCH (23:01)
[2022-01-26] MEDS: HYDRALAZINE HCL 20 MG/ML VIAL IV PRN (23:02)
[2022-01-27 04:51] LABS: Specific Gravity 1.015 (1.005-1.030); Urine Bilirubin NEGATIVE (Negative); Urine Blood 2+ (Negative); Urine Clarity Clear (Clear); Urine Color Light-Yellow (Yellow); Urine Glucose NEGATIVE (Negative); Urine Protein TRACE (Negative); Urine RBC 21-50 /HPF (None Seen); Urine Urobilinogen Normal (Normal)
[2022-01-27 04:52] LABS: Urine Bacteria <20 /HPF (<20)
[2022-01-27] MEDS: HYDRALAZINE HCL 20 MG/ML VIAL IV PRN (05:11)
[2022-01-27] MEDS: HYDROCODONE/APAP 7.5/325 MG TAB PO PRN ×2 (05:11→20:56)
[2022-01-27 07:17] LABS: Absolute Lymphocytes (CBC) 1.2 K/uL (0.7-4.9); Hematocrit 33.4 % (39.6-49.0); Lymphocytes % 7.6 % (15.3-44.8); MCV 93.7 fL (80-100); MPV 8.8 fL (7.6-11.3); RBC Red Blood Cell Count 3.56 M/uL (4.33-5.43)
[2022-01-27 07:29] LABS: Potassium 3.7 mmol/L (3.5-5.1)
[2022-01-27] MEDS ORDERED: POTASSIUM CL SA 10 MEQ TAB PO ONE (07:31)
[2022-01-27] MEDS: ENOXAPARIN 100 MG/ML SYR SQ SCH (09:04)
[2022-01-27] MEDS: CEFEPIME 2 GM in NA CHLORIDE 0.9% 100 ML IV SCH ×2 (09:04→20:57)
[2022-01-27] MEDS: GABAPENTIN 300 MG CAP PO SCH ×2 (09:05→20:56)
[2022-01-27] MEDS: ASPIRIN EC 81 MG TAB PO SCH (09:05)
[2022-01-27] MEDS: NA CHLORIDE 0.9% 1,000 ML IV SCH ×2 (14:13→21:03)
--- NOTE | 2022-01-27 14:16 | P.PN ---
Subjective Date of Service: 01/27/22 Chief Complaint: Altered mental status Patient's complaining of pain in the right hip. His mental status has improved WBC continues to trending down No recorded fever. Physical Examination - Vital Signs Temperature: 97.4 F Blood Pressure: 138/72 Pulse: 88 Respirations: 16 Pulse Ox (%): 97 Assessment And Plan - Current Problems (Diagnosis) (1) AMS (altered mental status) Current Visit: Yes Status: Acute (2) Leukopenia Current Visit: Yes Status: Acute (3) Sepsis Current Visit: Yes Status: Acute (4) Elevated troponin Current Visit: Yes Status: Acute - Plan Physical Exam General: In no apparent distress, oriented x3. Respiratory: Clear to auscultation bilaterally, Normal air movement Cardiovascular: No edema, Regular rate/rhythm, Normal S1 S2, No murmurs Gastrointestinal: Normal bowel sounds, Soft and benign, Non-distended, No tenderness Musculoskeletal: No swelling Integumentary: No rashes Neurological: Normal speech, Normal strength at 5/5 x4 extr Plan: Discontinue IV fluid. Diet as tolerated. Infectious disease input appreciated. Vancomycin discontinued, Continue IV cefepime Cultures: No growth to date UA is negative for UTI. Troponins elevated but trended flat. Elevated troponin likely related to sepsis. Continue aspirin and full dose Lovenox. Patient to complete 48 hours of Lovenox. Gabapentin for pain. [place] as needed for pain. Echocardiogram done and the result is pending. Monitor CBC to follow leukocytosis. PT evaluation.
[2022-01-27] MEDS: ALBUTEROL 2.5 MG/3 ML NEB SOL NEB PRN (21:50)
[2022-01-28] MEDS: NA CHLORIDE 0.9% 1,000 ML IV SCH ×2 (05:31→15:31)
[2022-01-28 05:36] LABS: Absolute Lymphocytes (CBC) 1.4 K/uL (0.7-4.9); Hematocrit 31.6 % (39.6-49.0); Lymphocytes % 12.1 % (15.3-44.8); MCV 96.4 fL (80-100); MPV 8.9 fL (7.6-11.3); RBC Red Blood Cell Count 3.28 M/uL (4.33-5.43)
[2022-01-28 06:47] LABS: Blood Morphology Comment NOT SEEN (NOT SEEN); Platelet Estimate ADEQ
[2022-01-28] MEDS: ASPIRIN EC 81 MG TAB PO SCH (08:09)
[2022-01-28] MEDS: GABAPENTIN 300 MG CAP PO SCH ×2 (08:09→21:00)
[2022-01-28] MEDS: CEFEPIME 2 GM in NA CHLORIDE 0.9% 100 ML IV SCH (08:10)
[2022-01-28] MEDS: HYDRALAZINE HCL 20 MG/ML VIAL IV PRN (08:10)
[2022-01-28] MEDS: ENOXAPARIN 40 MG/0.4 ML SQ SCH (08:10)
--- NOTE | 2022-01-28 13:21 | P.PN ---
Subjective Date of Service: 01/28/22 Chief Complaint: Altered mental status Patient's report persistent pain in his right hip and right knee Altered mental status resolved. Leukocytosis is almost resolved. Physical Examination - Vital Signs Temperature: 97.4 F Blood Pressure: 143/66 Pulse: 83 Respirations: 18 Pulse Ox (%): 98 Assessment And Plan - Current Problems (Diagnosis) (1) AMS (altered mental status) Current Visit: Yes Status: Acute (2) Leukopenia Current Visit: Yes Status: Acute (3) Sepsis Current Visit: Yes Status: Acute (4) Elevated troponin Current Visit: Yes Status: Acute - Plan Physical Exam General: In no apparent distress, oriented x3. Respiratory: Clear to auscultation bilaterally, Normal air movement Cardiovascular: No edema, Regular rate/rhythm, Normal S1 S2, No murmurs Gastrointestinal: Normal bowel sounds, Soft and benign, Non-distended, No tenderness Musculoskeletal: No swelling Integumentary: No rashes Neurological: Normal speech, Normal strength at 5/5 x4 extr Plan: Continue IV cefepime. Source of infection not identified Cultures: No growth to date UA is negative for UTI. Will transition to p.o. antibiotics. Troponins elevated but trended flat. Elevated troponin likely related to sepsis. Continue aspirin. Patient completed Lovenox for elevated troponin Gabapentin for pain. [place] as needed for pain. Echocardiogram done and the result is pending. Monitor CBC to follow leukocytosis. Awaiting PT evaluation.
[2022-01-28] MEDS: HYDROCODONE/APAP 7.5/325 MG TAB PO PRN (21:00)
[2022-01-29] MEDS: NA CHLORIDE 0.9% 1,000 ML IV SCH ×3 (01:31→22:17)
[2022-01-29 04:05] LABS: Lymphocytes % 19.6 % (15.3-44.8); MCV 95.9 fL (80-100); MPV 9.1 fL (7.6-11.3); RBC Red Blood Cell Count 3.34 M/uL (4.33-5.43)
--- NOTE | 2022-01-29 07:05 | ECHO ---
HEIGHT: 5 ft 8 in WEIGHT: 200 lb 0 oz DATE OF STUDY: 01/26/[address]: Dillon Santos MD 2-DIMENSIONAL: YES M.MODE: YES DOPPLER: YES COLOR FLOW: YES TDS: PORTABLE: YES DEFINITY: BUBBLE STUDY: DIAGNOSIS: ELEVATED TROPONIN, CHEST PAIN CARDIAC HISTORY: CATHERIZATION: NO SURGERY: NO PROSTHETIC VALVE: NO PACEMAKER: NO MEASUREMENTS (cm) DIASTOLIC (NORMALS) SYSTOLIC (NORMALS) IVSd 1.4 (0.6-1.2) LA Diam 4.0 (1.9-4.0) LVEF 64% LVIDd 5.1 (3.5-5.7) LVIDs 3.3 (2.0-3.5) %FS 35% LVPWd 1.3 (0.6-1.2) Ao Diam 2.8 (2.0-3.7) 2 DIMENSIONAL ASSESSMENT: RIGHT ATRIUM: NORMAL LEFT ATRIUM: ENLARGED RIGHT VENTRICLE: NORMAL LEFT VENTRICLE: NORMAL TRICUSPID VALVE: MILD TRICUSPID REGURGITATION MITRAL VALVE: MITRAL ANNULAR CALCIFICATION WITH MILD MITRAL REGURGITATION PULMONIC VALVE: NORMAL AORTIC VALVE: NORMAL PERICARDIAL EFFUSION: NONE AORTIC ROOT: NORMAL LEFT VENTRICULAR WALL MOTION: NORMAL DOPPLER/COLOR FLOW: SEE BELOW COMMENTS: NORMAL LEFT VENTRICULAR EJECTION FRACTION 60-65% WITH NORMAL WALL MOTION. MILD TRICUSPID REGURGITATION/ MITRAL REGURGITATION. DIASTOLIC DYSFUNCTION. TECHNOLOGIST: CARMENZA LARA
[2022-01-29] MEDS: ASPIRIN EC 81 MG TAB PO SCH (08:24)
[2022-01-29] MEDS: HYDRALAZINE HCL 20 MG/ML VIAL IV PRN (08:24)
[2022-01-29] MEDS: ENOXAPARIN 40 MG/0.4 ML SQ SCH (08:24)
[2022-01-29] MEDS: HYDROCODONE/APAP 7.5/325 MG TAB PO PRN (08:24)
[2022-01-29] MEDS: GABAPENTIN 300 MG CAP PO SCH ×2 (08:24→21:21)
[2022-01-29] MEDS: levoFLOXacin 750 MG TAB PO SCH (08:25)
--- NOTE | 2022-01-29 16:37 | P.PN ---
Subjective Date of Service: 01/29/22 Chief Complaint: Altered mental status Patient is complaining of cough productive of yellowish sputum. He also reports persistent pain in the right knee and the right hip. Physical Examination - Vital Signs Temperature: 97.1 F Blood Pressure: 99/54 Pulse: 107 Respirations: 16 Pulse Ox (%): 97 Assessment And Plan - Current Problems (Diagnosis) (1) AMS (altered mental status) Current Visit: Yes Status: Acute (2) Leukopenia Current Visit: Yes Status: Acute (3) Sepsis Current Visit: Yes Status: Acute (4) Elevated troponin Current Visit: Yes Status: Acute - Plan Physical Exam General: NAD, oriented x3. Respiratory: Clear to auscultation bilaterally, Normal air movement Cardiovascular: No edema, Regular rate/rhythm, Normal S1 S2, No murmurs Gastrointestinal: Normal bowel sounds, Soft and benign, Non-distended, No tenderness Musculoskeletal: No swelling Neurological: Normal speech, Normal strength at 5/5 x4 extr Plan: Leukocytosis resolved IV antibiotics transition to oral Levaquin. Patient with productive. Source of infection/sepsis could be pneumonia. Repeat chest x-ray Cultures: No growth to date UA is negative for UTI. Troponins elevated but trended flat. Elevated troponin likely related to sepsis. Continue aspirin. Patient completed Lovenox for elevated troponin Gabapentin for pain. [place] as needed for pain. Echocardiogram shows normal EF. Patient having difficulty ambulating with his walker. Continue PT. Family looking forward to inpatient rehab.
[2022-01-29] MEDS: GUAIFENESIN/DM 5 ML UCUP PO PRN ×2 (17:59→23:22)
--- NOTE | 2022-01-29 20:07 | PN ---
Subjective: The patient lying in bed. Complains of knee and groin pain, which he has been having fo r some time. Denies any fever or any other problems. Objective: Vital Signs: Temperature 97, pulse 100, respirations 16, blood pressure 99/54. Lungs: Basal crackles. Heart: S1, S2. Regular. Abdomen: Soft, nontender. Bowel sounds present. Extremity: No edema. Laboratory Data: Shows WBC 10.2, hemoglobin 11.1, platelets are 223. Chemistry shows sodium 136, po tassium 4, chloride 105, bicarb 25, BUN 8, creatinine 0.5, glucose is 89, albumin is 2.4. Blood cult ures from 01/24 are negative. Assessment And Plan: The patient is doing well, being transferred to rehab facility. Altered mental status, improving. Leukocytosis improved. Sepsis improved, currently on Levaquin. Continue empiri forrest for 10 days as the patient cultures are negative. We will follow the patient closely. No othe r recommendation at this time. NF/MODL Voice ID: [id number] Report ID: [id number]
--- NOTE | 2022-01-29 21:45 | P.PN ---
Date of Service: 01/30/22 Subjective: no fever, no nausea/vomiting overall feeling better each day continues with knee pain; states is chronic but slightly worse since not ambulating ROS: 10 point ROS as noted above, otherwise negative Physical Exam: Gen: NAD, AOx3, intermittent pain/discomfort HEENT: normal conjunctiva, sclera anicteric CV: regular rate & rhythm, no edema Pulm: non-labored respirations, clear bilaterally Abd: soft, non-tender, non-distended MSK: R knee pain with ROM Neuro: normal speech, normal affect vitals reviewed Problem List acute metabolic encephalopathy secondary to sepsis NSTEMI, demand ischemia HTN right hip/knee osteoarthritis and pain unknown / unclear source of infection potential source - urine vs possible pneumonia ID consulted, transitioned to PO levaquin, recommends 10 day empiric regimen labs improving and remains afebrile check CRP/procal trop trended flat, echo normal difficulty ambulating with his walker due to chronic osteoarthritis has been receiving norco for pain PRN continue PT, family and patient requested inpatient rehab may be more appropriate for SNF social studies department chair consulted reports knee pain is chronic, but slightly worse in the last week due to not using them as much VTE: lovenox Code: full Dispo: rehab vs SNF Time Spent Managing Pts Care (In Minutes): 35
[2022-01-30 06:15] LABS: MCV 95.5 fL (80-100); MPV 8.3 fL (7.6-11.3); RBC Red Blood Cell Count 3.15 M/uL (4.33-5.43)
[2022-01-30 06:36] LABS: C-Reactive Protein 27.6 mg/L (<3.00); Magnesium 1.6 mg/dL (1.8-2.4); Potassium 3.8 mmol/L (3.5-5.1)
[2022-01-30] MEDS ORDERED: MAGNESIUM SULFATE 1 gm IVPB 1 GM/100 ML BAG IV ONE (06:43)
[2022-01-30] MEDS: ASPIRIN EC 81 MG TAB PO SCH (08:16)
[2022-01-30] MEDS: GABAPENTIN 300 MG CAP PO SCH ×2 (08:17→20:35)
[2022-01-30] MEDS: HYDRALAZINE HCL 20 MG/ML VIAL IV PRN (08:17)
[2022-01-30] MEDS: ENOXAPARIN 40 MG/0.4 ML SQ SCH (08:17)
[2022-01-30] MEDS: GUAIFENESIN/DM 5 ML UCUP PO PRN ×2 (08:17→13:43)
[2022-01-30] MEDS: levoFLOXacin 750 MG TAB PO SCH (08:17)
[2022-01-30] MEDS: NA CHLORIDE 0.9% 1,000 ML IV SCH ×2 (08:18→19:41)
[2022-01-30] MEDS ORDERED: POTASSIUM CL SA 10 MEQ TAB PO ONE (09:00)
--- NOTE | 2022-01-30 14:34 | PN ---
Subjective: The patient is lying in bed. Physical Therapy in the room. Denies any headache, nausea , vomiting, chest pain, abdominal pain, constipation, or diarrhea. Objective: Vital Signs: Temperature 97, pulse 74, respirations 16, blood pressure 169/80. Lungs: Clear to auscultation. Heart: S1, S2. Regular. Abdomen: Soft, nontender. Bowel sounds present. Extremities: No edema. Laboratory Data: WBC 8.8, hemoglobin 10.7, platelets are 250. Chemistry shows sodium 136, potassium 3.8, chloride 105, bicarb 26, BUN 10, creatinine 0.7, glucose is 92. Assessment And Plan: The patient is clinically doing better. Leukocytosis is improved, currently on Levaquin. Consider extended rehab therapy as the patient lives by himself at home. We will follow the patient closely. No other recommendation at this time. NF/MODL Voice ID: [id number] Report ID: [id number]
[2022-01-30] MEDS ORDERED: FAMOTIDINE 20 MG TAB PO ONE (20:06)
[2022-01-31] MEDS: GUAIFENESIN/DM 5 ML UCUP PO PRN ×3 (00:44→20:31)
[2022-01-31] MEDS: HYDRALAZINE HCL 20 MG/ML VIAL IV PRN (00:45)
[2022-01-31] MEDS: HYDROCODONE/APAP 7.5/325 MG TAB PO PRN ×2 (01:41→06:11)
[2022-01-31] MEDS: NA CHLORIDE 0.9% 1,000 ML IV SCH (05:23)
[2022-01-31] MEDS: AMLODIPINE 5 MG TAB PO SCH ×2 (05:24→08:30)
[2022-01-31] MEDS ORDERED: BENZONATATE 100 MG CAP PO PRN (05:36)
[2022-01-31 07:54] LABS: Hematocrit 31.9 % (39.6-49.0); MCV 96.1 fL (80-100); MPV 8.4 fL (7.6-11.3); RBC Red Blood Cell Count 3.32 M/uL (4.33-5.43)
[2022-01-31 07:55] LABS: C-Reactive Protein 18.2 mg/L (<3.00); Magnesium 1.9 mg/dL (1.8-2.4); Potassium 3.7 mmol/L (3.5-5.1)
[2022-01-31] MEDS ORDERED: POTASSIUM CL SA 10 MEQ TAB PO ONE (08:03)
[2022-01-31] MEDS: GABAPENTIN 300 MG CAP PO SCH ×2 (08:30→20:25)
[2022-01-31] MEDS: levoFLOXacin 750 MG TAB PO SCH (08:30)
[2022-01-31] MEDS: ASPIRIN EC 81 MG TAB PO SCH (08:30)
[2022-01-31] MEDS: ENOXAPARIN 40 MG/0.4 ML SQ SCH (08:31)
--- NOTE | 2022-01-31 14:47 | RAD REPORT ---
EXAM DESCRIPTION: Jason Single View01/31/2022 2:17 pm CLINICAL HISTORY: Cough COMPARISON: January 24, 2022 FINDINGS: Questionable opacity behind the left side of the heart Right lung appears clear. Heart is normal size IMPRESSION: Questionable opacity behind the left side of the heart. It is recommended that patient h ave a PA and lateral chest series for further evaluation
--- NOTE | 2022-01-31 16:13 | RAD REPORT ---
EXAM DESCRIPTION: Jason Pa And Lat (2 Views)01/31/2022 3:58 pm CLINICAL HISTORY: Cough COMPARISON: January 31, 2022 AP chest film FINDINGS: Left lower lobe is clear. The lungs appear clear of acute infiltrate. The heart is normal size IMPRESSION: No acute abnormalities displayed
--- NOTE | 2022-01-31 17:04 | PN ---
Subjective: The patient is lying in bed. No other complaint except leg pain from arthritis. Objective: Vital Signs: Temperature 96.8, pulse 82, respirations 14, blood pressure 158/68. Lungs: Basal crackles. Heart: S1, S2. Regular. Abdomen: Soft, nontender. Bowel sounds present. Extremities: No edema. Laboratory Data: Shows WBC 8.5, hemoglobin 9.3, platelets are 311. BUN is 7, creatinine 0.5. Micro data shows no growth. Assessment And Plan: Urinary tract infection, altered mental status improving. The patient is curre ntly on Levaquin orally. Pending discharge to half-way facility. Continue current treatment. Anemia of chronic disease, arthritis, morbid obesity. Continue supportive care and nutritional sup port. We will follow the patient as needed. NF/MODL Voice ID: [id number] Report ID: [id number]
--- NOTE | 2022-01-31 17:19 | P.PN ---
Date of Service: 01/31/22 Subjective: no fever, no nausea/vomiting continues with cough and b/l knee pain gets into coughing fits has not ambulated, states leg pain is chronic and worse now since he hasn't been using them ROS: 10 point ROS as noted above, otherwise negative Physical Exam: Gen: NAD, AOx3, intermittent pain/discomfort HEENT: normal conjunctiva, sclera anicteric CV: regular rate & rhythm, no edema Pulm: non-labored respirations, slight ronchi Abd: soft, non-tender, non-distended MSK: knee pain with ROM Neuro: normal speech, normal affect vitals reviewed Problem List acute metabolic encephalopathy secondary to sepsis, resolved NSTEMI, demand ischemia HTN right hip/knee osteoarthritis and pain unknown / unclear source of infection likely UTI ID consulted, transitioned to PO levaquin, recommends 10 day empiric regimen labs improving and remains afebrile check CRP/procal - improving CXR on 01/31 clear trop trended flat, echo normal - slight diastolic dysfunction difficulty ambulating with his walker due to chronic osteoarthritis has been receiving norco for pain PRN continue PT, family and patient requested inpatient rehab but more appropriate for SNF manager social responsibility consulted reports knee pain is chronic, but slightly worse in the last week due to not using them as much VTE: lovenox Code: full Dispo: rehab, anticipate tomorrow Time Spent Managing Pts Care (In Minutes): 35
[2022-02-01 06:04] LABS: Magnesium 1.7 mg/dL (1.8-2.4); Potassium 4.2 mmol/L (3.5-5.1)
[2022-02-01] MEDS ORDERED: TRAMADOL HCL 50 MG TAB PO PRN (06:19)
[2022-02-01] MEDS: ENOXAPARIN 40 MG/0.4 ML SQ SCH (08:07)
[2022-02-01] MEDS: ASPIRIN EC 81 MG TAB PO SCH (08:08)
[2022-02-01] MEDS: AMLODIPINE 5 MG TAB PO SCH (08:08)
[2022-02-01] MEDS: levoFLOXacin 750 MG TAB PO SCH (08:08)
[2022-02-01] MEDS: GABAPENTIN 300 MG CAP PO SCH (08:08)
[2022-02-01 08:09] VITALS: BP 135/77
[2022-02-01 08:18] VITALS: TEMP 96.9
[2022-02-01] MEDS ORDERED: MAGNESIUM SULFATE 1 gm IVPB 1 GM/100 ML BAG IV ONE (09:00)
[2022-02-01 09:18] VITALS: O2SAT 98
--- NOTE | 2022-02-01 21:03 | P.DS ---
Admission Date: 01/24/22 Discharge Date: 02/01/22 Disposition: TRANSFER TO SNF - REHAB Discharge Condition: FAIR Reason for Admission: Altered mental status Consultations: ID - Dr. Hahn Brief History of Present Illness: 81-year-old gentleman with a history of hypertension, chronic pain was brought to the emergency department by ambulance because patient was found confused. There is a report of chest pain. Patient is confused and cannot provide any history. Patient noted to be afebrile in the ED, blood work shows leukopenia, with 15% bands. 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 Lactic acid borderline elevated. Chest x-ray shows no acute infiltrate. Patient given IV fluid and antibiotics for suspected sepsis. Troponin is mildly elevated. Patient is hospitalized for further management. Hospital Course: Problem List acute metabolic encephalopathy secondary to sepsis, resolved NSTEMI, demand ischemia HTN right hip/knee osteoarthritis and pain Patient presented with confusion, fall, and concern for infection. Evaluation did not reveal any specific source of infection. Infectious disease was consulted. Patient was treated empirically with antibiotics and transitioned to PO levaquin for possible UTI. To complete 10 day total course. End date: 02/03 He continued to have clinical improvement and remained afebrile. Patient was noted to have mildly elevated troponins. He was evaluated by echocardiogram which did not reveal any new findings, noted mild diastolic dysfunction. Troponin elevation was felt to be secondary to demand ischemia.. Patient was noted to have difficulty walking secondary to bilateral knee pain, which has been a chronic issue for him, with some worsening in the last few weeks due to not ambulating much from feeling sick. Working with PT was limited due to pain. He had some improvement with pain medication. He was also noted to have hypertension and started on norvasc. Patient discharged to SNF for continued physical therapy. Patient did report a cough during hospitalization, he was COVID negative. Chest x-ray was negative for any acute findings - no pneumonia, no pleural effusion, no significant pulmonary edema. New medications Levaquin - end date: 02/03 Tramadol PRN for pain Norvasc 5mg daily Lauren reyes Follow up: PCP within 1 week of discharge home Orthopedic surgery in near future for ongoing knee pains since surgery Vital Signs/Physical Exam: Temp Pulse Resp BP Pulse Ox 96.9 F 92 H 16 135/77 99 02/01/22 08:00 02/01/22 08:08 02/01/22 08:00 02/01/22 08:08 02/01/22 08:00 Physical Exam: Gen: NAD, AOx3, intermittent pain/discomfort HEENT: normal conjunctiva, sclera anicteric CV: regular rate & rhythm, no edema Pulm: non-labored respirations, slight rhonchi Abd: soft, non-tender, non-distended MSK: knee pain with ROM Neuro: normal speech, normal affect Laboratory Data at Discharge: WBC 8.50 K/uL (4.3-10.9) 01/31/22 07:33 Hgb 11.3 g/dL (13.6-17.9) L 01/31/22 07:33 Hct 31.9 % (39.6-49.0) L 01/31/22 07:33 Plt Count 311 K/uL (152-406) 01/31/22 07:33 PT 11.5 SECONDS (9.5-12.5) 01/24/22 11:05 INR 1.04 01/24/22 11:05 APTT 24.9 SECONDS (24.3-36.9) 01/24/22 11:05 Sodium 136 mmol/L (136-145) 02/01/22 05:23 Potassium 4.2 mmol/L (3.5-5.1) D 02/01/22 05:23 BUN 10 mg/dL (7-18) 02/01/22 05:23 Creatinine 0.67 mg/dL (0.55-1.3) 02/01/22 05:23 Glucose 102 mg/dL (74-106) 02/01/22 05:23 Phosphorus 2.8 mg/dL (2.5-4.9) 01/25/22 05:23 Magnesium 1.7 mg/dL (1.8-2.4) L 02/01/22 05:23 Total Bilirubin 0.6 mg/dL (0.2-1.0) 01/26/22 05:32 AST 83 U/L (15-37) H 01/26/22 05:32 ALT 36 U/L (12-78) 01/26/22 05:32 Alkaline Phosphatase 74 U/L (45-117) 01/26/22 05:32 Triglycerides 52 mg/dL (<150) 01/25/22 05:23 Cholesterol 115 mg/dL (<200) 01/25/22 05:23 HDL Cholesterol 78 mg/dL (40-60) H 01/25/22 05:23 Cholesterol/HDL Ratio 1.47 01/25/22 05:23 Lipase 78 U/L (73-393) 01/24/22 11:05 Home Medications: Gabapentin 300 mg PO BID 01/31/22 Amlodipine [Norvasc*] 5 mg PO DAILY tab 02/01/22 Benzonatate [Tessalon Perle*] 100 mg PO TID PRN cap 02/01/22 levoFLOXacin [Levaquin*] 750 mg PO DAILY 4 Days #4 tab 02/01/22 traMADol HCL [Ultram*] 50 mg PO Q8H PRN #12 tab 02/01/22 New Medications: traMADol HCL [Ultram*] 50 mg PO Q8H PRN #12 tab PRN Reason: Pain Scale 5-7 (Moderate) Physician Discharge Instructions: Patient presented with confusion, fall, and concern for infection. Evaluation did not reveal any specific source of infection. Infectious disease was consulted. Patient was treated empirically with antibiotics and transitioned to PO levaquin for possible UTI. To complete 10 day total course. End date: 02/03 He continued to have clinical improvement and remained afebrile. Patient was noted to have mildly elevated troponins. He was evaluated by echocardiogram which did not reveal any new findings, noted mild diastolic dysfunction. Troponin elevation was felt to be secondary to demand ischemia.. Patient was noted to have difficulty walking secondary to bilateral knee pain, which has been a chronic issue for him, with some worsening in the last few weeks due to not ambulating much from feeling sick. Working with PT was limited due to pain. He had some improvement with pain medication. He was also noted to have hypertension and started on norvasc. Patient discharged to SNF for continued physical therapy. Patient did report a cough during hospitalization, he was COVID negative. Chest x-ray was negative for any acute findings - no pneumonia, no pleural effusion, no significant pulmonary edema. New medications Levaquin - end date: 02/03 Tramadol PRN for pain Norvasc 5mg daily Lauren reyes Follow up: PCP within 1 week of discharge home Orthopedic surgery in near future for ongoing knee pains since surgery Activity: Fall precautions Followup: Unknown,U [Primary Care Provider] - 1-2 Weeks (Call to schedule appointment ) Time spent managing pt's care (in minutes): 40
== END 2022-02-01 10:59 | DRG 871 ==
LOC: ER 10:36 → ERHOLD 17:31 → 4TH 20:38
PROVIDERS: ADMIT Internal Medicine; ATTEND Hospitalist
DX: A41.9 Sepsis, unspecified organism (principal); I21.A1 Myocardial infarction type 2; G93.41 Metabolic encephalopathy; N39.0 Urinary tract infection, site not specified; I10 Essential (primary) hypertension; E83.42 Hypomagnesemia; D63.8 Anemia in other chronic diseases classified elsewhere; D70.9 Neutropenia, unspecified; E66.01 Morbid (severe) obesity due to excess calories; M16.11 Unilateral primary osteoarthritis, right hip; M17.11 Unilateral primary osteoarthritis, right knee; R77.8 Other specified abnormalities of plasma proteins; Z68.30 Body mass index [BMI] 30.0-30.9, adult; Z96.651 Presence of right artificial knee joint; Z79.899 Other long term (current) drug therapy; Z20.822 Contact with and (suspected) exposure to COVID-19
CPT/HCPCS: 36415; 70450; 71045; 71046; 71250; 72125; 80048; 80053; 80061; 80076; 80202; 80307; 80320; 80329; 81001; 81003; 83605; 83615; 83690; 83735; 83880; 84100; 84145; 84443; 84484; 85025; 85027; 85610; 85730; 86140; 87040; 87086; 87088; 93005; 93306; 93970; 94640; 94760; 96372; 96374; 96375; 97110; 97116; 97167; 97530; 99285; J0360; J0692; J1650; J2405; J3010; J3370; J3475; J7030; J7040; J7050; Q9967; U0003

== ENCOUNTER → 2023-07-12 | Emergency (ER) | payer OTHER ==
[~2023-07-12] MED LIST: IBUPROFEN 200 MG TAB PO ONE; IBUPROFEN 400 MG TAB ONE
--- OUTSIDE RECORDS SUMMARY | 2023-07-12 12:55 | XMS REPORT | Continuity of Care Document ---
Author Name Unknown Address [address] [facility] th[address] Address [address] [facility] [place] [address] Care Team Providers Care Technology Sales Representative Name Role Phone Unavailable Unavailable Unavailable Payers Payer Name Policy Type Policy Number Effective Date Expirati on Date Source [employer] (MEDICARE REPLACEMENT HMO) [id number] 00:00:00 Encounters Start Date/Time End Date/Time Encounter Type Admission Type Attending Clinicians Care Facility Care Department Encounter ID Source 2022-03-19 00:00:00 2022-03-19 00:00:00 Outpatient [facility] [id number] [facility]
--- NOTE | 2023-07-12 15:07 | RAD REPORT ---
EXAM DESCRIPTION: US - Extremity Venous [employer] - 07/12/2023 2:59 pm CLINICAL HISTORY: Pain swelling COMPARISON: None. TECHNIQUE: Real-time sonographic evaluation of the right lower extremity deep venous system was perf ormed. FINDINGS: Normal compressibility, flow augmentation, phasic flow and spontaneous flow is identified in the right lower extremity deep venous system. No intraluminal filling defects seen. IMPRESSION: No DVT in the right lower extremity.
--- NOTE | 2023-07-12 15:23 | EDPHYS ---
Physician Documentation [facility] Name: Christina Tse Age: 82 yrs Sex: Male : 1940 Arrival Date: 07/12/2023 Time: 12:52 Bed 11 Private MD: ED Physician Nathan Holcomb HPI: 07/11 15:23 This 82 yrs old Male presents to ER via EMS with complaints of Leg Pain. ms3 15:23 82-year-old male past medical history of hypertension, GERD presents to the emergency ks3 department via [facility] for right lower extremity swelling. Patient states he is having moderate right leg pain for 1 week. Patient denies any alleviating or inciting factors.. Historical: - Allergies: 13:07 No Known Allergies; hb - Home Meds: 13:09 diclofenac sodium 1 % topical gel [Active]; finasteride 5 mg oral tablet daily hb [Active]; gabapentin 300 mg oral capsule 2 times per day [Active]; aspirin 81 mg oral tablet,chewable daily [Active]; - PMHx: 13:07 Hypertension; hb 13:09 GERD; hb - PSHx: 13:07 Hip Replacement - Bilateral; Knee Replacement - Bilateral; hb - Immunization history:: Adult Immunizations up to date. - Social history:: Smoking status: Patient denies any tobacco usage or history of. ROS: 15:23 Constitutional: Negative for fever, and chills. Neck: Negative for injury, pain, and ms3 swelling, Cardiovascular: Negative for chest pain, and palpitations. Respiratory: Negative for shortness of breath, cough, wheezing, and pleuritic chest pain, Abdomen/GI: Negative for abdominal pain, nausea, vomiting, diarrhea, and constipation, Skin: Negative for injury, rash, and discoloration, 15:23 MS/extremity: Positive for swelling, 15:23 All other systems are negative, Exam: 15:23 Constitutional: This is a well developed, well nourished patient who is awake, alert, ms3 and in no acute distress. Head/Face: Normocephalic, atraumatic. Neck: Trachea midline, no cervical lymphadenopathy. Supple, full range of motion without nuchal rigidity, or vertebral point tenderness. No Meningismus. Chest/axilla: Normal chest wall appearance and motion. Nontender with no deformity. Cardiovascular: Regular rate and rhythm with a normal S1 and S2. No gallops, murmurs, or rubs. Normal PMI, no JVD. No pulse deficits. Respiratory: Lungs have equal breath sounds bilaterally, clear to auscultation and percussion. No rales, rhonchi or wheezes noted. No increased work of breathing, no retractions or nasal flaring. Abdomen/GI: Soft, non-tender, with normal bowel sounds. No distension or tympany. No guarding or rebound. No evidence of tenderness throughout. 15:23 Musculoskeletal/extremity: Extremities: noted in the Right lower extremity: swelling, Vital Signs: 13:06 BP 148 / 75; Pulse 77; Resp 17; Temp 98.4(O); Pulse Ox 100% on R/A; Weight 103.87 kg hb (R); Height 5 ft. 8 in. ; Pain 0/10; 13:20 BP 165 / 73; Pulse 80; Resp 22; Pulse Ox 99% on R/A; Pain 5/10; nj1 15:45 BP 145 / 65; Pulse 80; Resp 22; Pulse Ox 100% on R/A; nj1 13:06 Body Mass Index 34.82 (103.87 kg, 172.72 cm) hb 13:06 Pain Scale: Adult hb 13:20 Pain Scale: Adult nj1 MDM: 12:59 Patient medically screened. ms3 15:23 Differential diagnosis: DVT versus pedal edema versus venous insufficiency. ms3 15:26 Data reviewed: vital signs, nurses notes, radiologic studies, and as a result, I will ms3 discharge patient. I considered the following discharge prescriptions or medication management in the emergency department Medications were administered in the Emergency Department. See MAR. Care significantly affected by the following chronic conditions: Hypertension. Counseling: I had a detailed discussion with the patient and/or guardian regarding the historical points, exam findings, and any diagnostic results supporting the discharge/admit diagnosis, radiology results, the need for outpatient follow up, to return to the emergency department if symptoms worsen or persist or if there are any questions or concerns that arise at home. Special discussion: I discussed with the patient/guardian in detail that at this point there is no indication for admission to the hospital. It is understood, however, that if the symptoms persist or worsen the patient needs to return immediately for re-evaluation. ED course: Discussed negative DVT study with patient. [facility] Patient understands and agrees with plan. All questions were answered. Return precautions discussed include worsening symptoms, or any other concerns.. 07/11 13:00 Order name: US Extremity Venous Unilateral Ltd; Complete Time: 15:17 ms3 Administered Medications: 14:58 Drug: Ibuprofen PO 600 mg PO once Route: PO; nj1 15:49 Follow up: Response: No adverse reaction nj1 Disposition Summary: 07/12/23 15:23 Discharge Ordered Notes: Location: Home ms3 Condition: Stable ms3 Diagnosis - Pain in right lower leg ms3 - Right Leg edema ms3 Followup: ms3 - With: Private Physician - When: 2 - 3 days - Reason: Recheck today's complaints Discharge Instructions: - Discharge Summary Sheet ms3 - Musculoskeletal Pain ms3 Forms: - Medication Reconciliation Form ms3 - Thank You Letter ms3 - Antibiotic Education ms3 - Prescription Opioid Use ms3 - Patient Portal Instructions ms3 - Leadership Thank You Letter ms3 Signatures: Dispatcher [employer] Danica Camp, RN RN Nathan Holcomb DO DO ms3 Yumiko Larios, RN RN nj1
--- NOTE | 2023-07-12 15:23 | ER ---
Nurse's Notes [facility] Name: Christina Tse Age: 82 yrs Sex: Male : 1940 Arrival Date: 07/12/2023 Time: 12:52 Bed 11 Private MD: Diagnosis: Pain in right lower leg;Right Leg edema Presentation: 07/11 13:06 Chief complaint: EMS states: Sent from [facility] for RLE pain x 1 week. Coronavirus hb screen: At this time, the client does not indicate any symptoms associated with coronavirus-19. Ebola Screen: No symptoms or risks identified at this time. Initial Sepsis Screen: Does the patient meet any 2 criteria? No. Patient's initial sepsis screen is negative. Does the patient have a suspected source of infection? No. Patient's initial sepsis screen is negative. Risk Assessment: Do you want to hurt yourself or someone else? Patient reports no desire to harm self or others. Onset of symptoms was July 05, 2023. 13:06 Method Of Arrival: EMS: [facility] hb 13:06 Acuity: MARK 3 hb Triage Assessment: 13:07 General: Appears in no apparent distress. Behavior is calm, cooperative. Pain: Pain hb currently is 0 out of 10 on a pain scale. at worst was 8 out of 10 on a pain scale. Neuro: Level of Consciousness is awake, alert, obeys commands, Oriented to person, place, time, situation. Cardiovascular: Patient's skin is warm and dry. Respiratory: Respiratory effort is even, unlabored, Respiratory pattern is regular, symmetrical. Musculoskeletal: Reports right leg pain from knee to ankle. Historical: - Allergies: 13:07 No Known Allergies; hb - Home Meds: 13:09 diclofenac sodium 1 % topical gel [Active]; finasteride 5 mg oral tablet daily hb [Active]; gabapentin 300 mg oral capsule 2 times per day [Active]; aspirin 81 mg oral tablet,chewable daily [Active]; - PMHx: 13:07 Hypertension; hb 13:09 GERD; hb - PSHx: 13:07 Hip Replacement - Bilateral; Knee Replacement - Bilateral; hb - Immunization history:: Adult Immunizations up to date. - Social history:: Smoking status: Patient denies any tobacco usage or history of. Screenin:26 [facility] ED Fall Risk Assessment (Adult) Score/Fall Risk Level 3 or more points = High nj1 Risk Oriented to surroundings, Maintained a safe environment, Educated pt \T\ family on fall prevention, incl call for assistance when getting out of bed, Assessed \T\ reinforced patient's understanding of fall precautions, Hourly rounding (assess needs \T\ fall precautionary measures) done, Used ambulatory aids as needed (educated on \T\ assisted with), Remained with patient while ambulating. Abuse screen: Denies threats or abuse. Denies injuries from another. Nutritional screening: No deficits noted. Tuberculosis screening: No symptoms or risk factors identified. Assessment: 13:25 General: Appears in no apparent distress. comfortable, Behavior is calm, cooperative, nj appropriate for age. Pain: Complains of pain in right lower leg Pain currently is 5 out of 10 on a pain scale. Quality of pain is described as tight. Neuro: Level of Consciousness is awake, alert, obeys commands, Oriented to person, place, time, situation. Cardiovascular: Patient's skin is warm and dry. Respiratory: Airway is patent Respiratory effort is even, unlabored. 14:37 Reassessment: Not in room, at . [facility] 14:50 Reassessment: Patient appears in no apparent distress at this time. Patient and/or nj1 family updated on plan of care and expected duration. Pain level reassessed. Patient is alert, oriented x 3, equal unlabored respirations, skin warm/dry/pink. 15:45 Reassessment: Patient appears in no apparent distress at this time. Patient is alert, nj1 oriented x 3, equal unlabored respirations, skin warm/dry/pink. Vital Signs: 13:06 BP 148 / 75; Pulse 77; Resp 17; Temp 98.4(O); Pulse Ox 100% on R/A; Weight 103.87 kg hb (R); Height 5 ft. 8 in. ; Pain 0/10; 13:20 BP 165 / 73; Pulse 80; Resp 22; Pulse Ox 99% on R/A; Pain 5/10; nj1 15:45 BP 145 / 65; Pulse 80; Resp 22; Pulse Ox 100% on R/A; nj1 13:06 Body Mass Index 34.82 (103.87 kg, 172.72 cm) hb 13:06 Pain Scale: Adult hb 13:20 Pain Scale: Adult [facility] ED Course: 12:59 Patient arrived in ED. eb 12:59 Nathan Holcomb DO is Attending Physician. ms3 13:07 Triage completed. hb 13:07 Arm band placed on. hb 13:09 Client placed on continuous cardiac and pulse oximetry monitoring. NIBP monitoring hb applied. global ceo on. Pulse ox on. NIBP on. 13:13 Yumiko Larios, RN is Primary Nurse. nj1 13:26 Patient has correct armband on for positive identification. Bed in low position. Call nj1 light in reach. Side rails up X 1. Provided Education on: call light, fall precautions. 15:01 US Extremity Venous Unilateral Ltd In Process Unspecified. EDMS 15:49 No provider procedures requiring assistance completed. IV discontinued, intact, nj1 bleeding controlled. Administered Medications: 14:58 Drug: Ibuprofen PO 600 mg PO once Route: PO; nj1 15:49 Follow up: Response: No adverse reaction nj1 Medication: 15:49 VIS not applicable for this client. nj1 Outcome: 15:23 Discharge ordered by MD. ms3 15:45 Discharged to home ambulatory, nj1 15:45 Condition: stable 15:45 Discharge instructions given to patient, Instructed on discharge instructions, follow up and referral plans. Demonstrated understanding of instructions, follow-up care, 15:50 Patient left the ED. nj1 Signatures: Dispatcher [employer] EDMS Danica Rogers, RN SHEYLA Alyx Hung Nathan Holcomb DO DO ms3 Yumiko Larios, RN RN nj1
[2023-07-12 16:07] VITALS: TEMP 98.4
[2023-07-12 16:35] VITALS: BP 145/65; O2SAT 100
== END ==
LOC: ER 12:52
DX: M79.661 Pain in right lower leg (principal); R60.0 Localized edema; Z96.643 Presence of artificial hip joint, bilateral; Z96.653 Presence of artificial knee joint, bilateral; I10 Essential (primary) hypertension; Z79.82 Long term (current) use of aspirin
CPT/HCPCS: 93971; 99284

== ENCOUNTER 2024-07-29 14:38 | Emergency (ER) | payer OTHER ==
--- OUTSIDE RECORDS SUMMARY | 2024-07-29 14:41 | XMS REPORT | Continuity of Care Document ---
Author Name Unknown Address [address] [facility] [address] [facility] Address [address] [facility] [address] [place] [address] Care Team Providers Care Absence Management Consultant Name Role Phone Unavailable Unavailable Unavailable Payers Payer Name Policy Type Policy Number Effective Date Expirati on Date Source [employer] (MEDICARE REPLACEMENT HMO) [id number] 00:00:00 Encounters Start Date/Time End Date/Time Encounter Type Admission Type Attending [facility] Facility Care Department Encounter ID Source 2022-03-19 00:00:00 2022-03-19 00:00:00 Outpatient [facility] [id number] [facility]
[2024-07-29 15:37] LABS: Absolute Basophils 0.1 K/uL (0-0.5); Absolute Eosinophils 0.6 K/uL (0-0.5); Absolute Lymphocytes (CBC) 1.3 K/uL (0.7-4.9); Absolute Monocytes 0.9 K/uL (0.1-1.3); Absolute Neutrophil 5.1 K/uL (1.8-8.0); Basophils % 1.2 % (0-1.3); Eosinophils % 7.9 % (0-4.4); Hemoglobin 14.7 g/dL (13.6-17.9); Lymphocytes % 16.3 % (15.3-44.8); MCH 33.5 pg (27.0-35.0); MCHC 34.2 g/dL (32.0-36.0); MPV 8.4 fL (7.6-11.3); Monocytes % 11.7 % (3.3-12.3); Neutrophils % 62.9 % (41.7-73.7); Nucleated Red Blood Cells % 0.1 % (0-0); Platelets 308 thou/uL (152-406); RBC Red Blood Cell Count 4.39 M/uL (4.33-5.43); Red Cell Distribution Width 13.3 % (12.1-15.2)
--- NOTE | 2024-07-29 15:42 | RAD REPORT ---
Procedure: Chest Single View HISTORY: Chest pain COMPARISON: 2021 FINDINGS: The lungs appear clear of acute infiltrate. No significant pleural effusion noted. The heart is mildly enlarged. . IMPRESSION: No acute abnormality is displayed.
[2024-07-29 15:52] LABS: Troponin High Sensitivity 16.9 pg/mL (<58.9)
--- NOTE | 2024-07-29 16:08 | EDPHYS ---
Physician Documentation [facility] Name: Christina Tse Age: 83 yrs Sex: Male : 1940 Arrival Date: 07/29/2024 Time: 14:38 Bed DX4 Private MD: ED Physician Jun Nielson HPI: 07/29 15:02 This 83 yrs old Male presents to ER via Ambulatory with complaints of Chest ec2 Pain. 15:02 Patient arrives today for evaluation of reproducible left-sided chest pain. Patient ec2 reports that has been experiencing some chest pain since today. States that he bent over to pick something up and felt a strain on his chest that is worse with movement. Patient reports no significant cardiac history, reports a history of hypertension, no previous ACS, no previous diabetes or cholesterol problems.. Historical: - Allergies: 14:57 No Known Allergies; iw - PMHx: 14:57 GERD; Hypertension; iw - PSHx: 14:57 Hip Replacement - Bilateral; Knee Replacement - Bilateral; iw - Immunization history:: Adult Immunizations up to date. - Infectious Disease History:: Denies. - Social history:: Smoking status: Patient denies any tobacco usage or history of. ROS: 15:02 Constitutional: as per hpi ec2 Exam: 15:02 Constitutional: GEN: NAD Head: atraumatic Eyes: EOMI Ears: External ears are ec2 normal. CV: regular rate LUNGS: no respiratory distress ABD: non-distended SKIN: no evidence of rashes MSK: no evidence of trauma, reproducible left-sided chest wall TTP Vital Signs: 14:56 BP 182 / 81; Pulse 75; Resp 16; Temp 98.1; Pulse Ox 96% on R/A; Weight 103.87 kg; iw Height 5 ft. 8 in. ; 16:19 BP 160 / 71; Pulse 74; Resp 17; Pulse Ox 96% on R/A; Pain 0/10; ll1 14:56 Body Mass Index 34.82 (103.87 kg, 172.72 cm) iw 16:19 Pain Scale: Adult ll1 MDM: 14:52 Medical Screening Exam initiated ec2 15:02 Data reviewed: vital signs, nurses notes. ED course: Patient arrives today for ec2 left-sided chest pain that is reproducible on my examination. Will obtain lab work, EKG and chest x-ray. DDx include processes such as costochondritis, ACS, doubt PE or dissection.. 15:03 ED course: EKG independently reviewed and interpreted by me, shows normal sinus rhythm, ec2 rate of 86, no acute ST segment elevations, intervals are nonactionable, right bundle branch block noted.. 16:07 ED course: On reassessment patient is well-appearing no acute distress. Patient with ec2 lab work that is reassuring. Patient is getting anxious regarding his dog but is out in the car, would like to give repeat EKG and troponin however at this time patient would like to go home. Instructed him on return precautions and if he changes mind to return to the ED. I suspect costochondritis. Return precautions given.. 07/29 15:00 Order name: Basic Metabolic Panel; Complete Time: 15:55 ec2 07/29 15:00 Order name: CBC with Diff; Complete Time: 15:51 ec2 07/29 15:00 Order name: Troponin HS; Complete Time: 15:55 ec2 07/29 15:00 Order name: XRAY Chest (1 view); Complete Time: 15:51 ec2 07/29 15:00 Order name: Cardiac monitoring ec2 07/29 15:00 Order name: EKG - Nurse/Tech; Complete Time: 15:29 ec2 07/29 15:00 Order name: IV Saline Lock; Complete Time: 15:21 ec2 07/29 15:00 Order name: Labs collected and sent; Complete Time: 15:21 ec2 07/29 15:00 Order name: O2 Per Protocol ec2 07/29 15:00 Order name: O2 Sat Monitoring ec2 Administered Medications: No medications were administered Disposition Summary: 07/29/24 16:08 Discharge Ordered Notes: Location: Home ec2 Condition: Stable ec2 Diagnosis - Chest pain, unspecified ec2 Followup: ec2 - With: Private Physician - When: - Reason: Re-evaluation by your physician Discharge Instructions: - Discharge Summary Sheet ec2 - Costochondritis, [id number] ec2 Forms: - Medication Reconciliation Form ec2 - Antibiotic Education ec2 - Prescription Opioid Use ec2 - Patient Portal Instructions ec2 - Leadership Thank You Letter ec2 Signatures: Dispatcher [facility] Michelle Antonio RN RN iw Corral, Edwin, MD MD ec2 Corrections: (The following items were deleted from the chart) 15:01 15:01 Chest Single View+[id number].BRZ ordered. EDMS EDMS 16:08 16:08 Costochondritis ec2 ec2 16:18 15:55 Misc. Order ordered. ec2 ll1
--- NOTE | 2024-07-29 16:08 | ER ---
Nurse's Notes [facility] Name: Christina Tse Age: 83 yrs Sex: Male : 1940 Arrival Date: 07/29/2024 Time: 14:38 Bed DX4 Private MD: Diagnosis: Chest pain, unspecified Presentation: 07/29 14:56 Chief complaint: Patient states: left sided chest pain after reaching over to pick iw something up at his doctor office today. Coronavirus screen: At this time, the client does not indicate any symptoms associated with coronavirus-19. Ebola Screen: No symptoms or risks identified at this time. Initial Sepsis Screen: Does the patient meet any 2 criteria? No. Patient's initial sepsis screen is negative. Does the patient have a suspected source of infection? No. Patient's initial sepsis screen is negative. Risk Assessment: Do you want to hurt yourself or someone else? Patient reports no desire to harm self or others. Onset of symptoms was July 29, 2024. 14:56 Method Of Arrival: Ambulatory iw 14:56 Acuity: MARK 3 iw Historical: - Allergies: 14:57 No Known Allergies; iw - PMHx: 14:57 GERD; Hypertension; iw - PSHx: 14:57 Hip Replacement - Bilateral; Knee Replacement - Bilateral; iw - Immunization history:: Adult Immunizations up to date. - Infectious Disease History:: Denies. - Social history:: Smoking status: Patient denies any tobacco usage or history of. Screenin:19 [facility] ED Fall Risk Assessment (Adult) History of falling in the last 3 months, ll1 including since admission No falls in past 3 months (0 pts) Confusion or Disorientation No (0 pts) Intoxicated or Sedated No (0 pts) Impaired Gait No (0 pts) Mobility Assist Device Used Yes (1 pt) Altered Elimination No (0 pt) Score/Fall Risk Level 0 - 2 = Low Risk Maintained a safe environment, Hourly rounding (assess needs \T\ fall precautionary measures) done. Abuse screen: Denies threats or abuse. Nutritional screening: No deficits noted. Tuberculosis screening: No symptoms or risk factors identified. Assessment: 16:19 General: Appears in no apparent distress. Behavior is calm, cooperative, appropriate ll1 for age. Pain: Complains of pain in chest Pain does not radiate. Pain began 2-3 days ago. Cardiovascular: Reports chest pain. Vital Signs: 14:56 BP 182 / 81; Pulse 75; Resp 16; Temp 98.1; Pulse Ox 96% on R/A; Weight 103.87 kg; iw Height 5 ft. 8 in. ; 16:19 BP 160 / 71; Pulse 74; Resp 17; Pulse Ox 96% on R/A; Pain 0/10; ll1 14:56 Body Mass Index 34.82 (103.87 kg, 172.72 cm) iw 16:19 Pain Scale: Adult ll1 ED Course: 14:39 Patient arrived in ED. mr 14:46 Jun Nielson MD is Attending Physician. ec2 14:57 Triage completed. iw 14:58 Arm band placed on. iw 15:21 Initial lab(s) drawn, by me, sent to lab. Inserted saline lock: 20 gauge in left iw antecubital area, using aseptic technique. Blood collected. Flushed with 10 mL NS. 15:34 XRAY Chest (1 view) In Process Unspecified. EDMS 16:19 No provider procedures requiring assistance completed. IV discontinued, intact, ll1 bleeding controlled, No redness/swelling at site. Pressure dressing applied. Patient maintains SpO2 saturation greater than 95% on room air. 16:20 Patient has correct armband on for positive identification. Provided Education on: ll1 return to ED for worsening symptoms. hallway chair. Administered Medications: No medications were administered Medication: 16:20 VIS not applicable for this client. ll1 Outcome: 16:08 Discharge ordered by . ec2 16:20 Discharged to home ambulatory, 1 16:20 Condition: stable 16:20 Discharge instructions given to patient, Instructed on discharge instructions, follow up and referral plans. Demonstrated understanding of instructions, follow-up care, 16:21 Patient left the ED. ll1 Signatures: Dispatcher [employer] EDAL Analy Jacobo, Reg Reg mr Michelle Lemus, SHEYLA CARRION iw Shazia Haque RN RN ll1 Jun Nielson MD MD ec2
[2024-07-29 17:59] VITALS: TEMP 98.1; O2SAT 96
[2024-07-29 18:05] VITALS: BP 160/71
--- NOTE | 2024-07-30 08:36 | EKG ---
Test Date: 2024-07-29 Test Time: 14:46:24 Building Construction Superintendent: CONSTANCE MEASUREMENT RESULTS: Intervals: Rate: 86 NJ: 158 QRSD: 128 QT: 404 QTc: 483 Admire: P: 24 NJ: 158 QRS: 0 T: -6 INTERPRETIVE STATEMENTS: Normal sinus rhythm Right bundle branch block Abnormal ECG Compared to ECG 01/24/2022 14:23:33 No significant changes Electronically Signed On 07-30-24 08:35:08 CDT by Freddie Esteban
== END 2024-07-29 16:21 | disposition home or self-care (01) ==
LOC: ER 14:38
DX: R07.9 Chest pain, unspecified (principal); I10 Essential (primary) hypertension; Z96.653 Presence of artificial knee joint, bilateral; Z96.643 Presence of artificial hip joint, bilateral
CPT/HCPCS: 36415; 71045; 80048; 84484; 85025; 93005; 99283

== ENCOUNTER 2024-09-13 14:11 | Emergency (ER) | payer MEDICARE, OTHER ==
--- OUTSIDE RECORDS SUMMARY | 2024-09-13 14:13 | XMS REPORT | Continuity of Care Document ---
Author Name Unknown Address [address] [facility] [address] [facility] Address [address] [facility]. [address] [place] [address] Care Team Providers Care Corporate Travel Agent Name Role Phone Unavailable Unavailable Unavailable Payers Payer Name Policy Type Policy Number Effective Date Expirati on Date Source [employer] (MEDICARE REPLACEMENT HMO) [id number] 00:00:00 Encounters Start Date/Time End Date/Time Encounter Type Admission Type Attending [facility] Facility Care Department Encounter ID Source 2022-03-19 00:00:00 2022-03-19 00:00:00 Outpatient [facility] [id number] [facility]
[2024-09-13 14:34] LABS: Absolute Basophils 0.1 K/uL (0-0.5); Absolute Eosinophils 0.2 K/uL (0-0.5); Absolute Lymphocytes (CBC) 1.4 K/uL (0.7-4.9); Absolute Monocytes 0.7 K/uL (0.1-1.3); Absolute Neutrophil 5.1 K/uL (1.8-8.0); Basophils % 0.8 % (0-1.3); Eosinophils % 3.1 % (0-4.4); Hematocrit 41.3 % (39.6-49.0); Hemoglobin 14.2 g/dL (13.6-17.9); Lymphocytes % 18.5 % (15.3-44.8); MCH 33.3 pg (27.0-35.0); MCHC 34.4 g/dL (32.0-36.0); MCV 96.8 fL (80-100); MPV 8.2 fL (7.6-11.3); Monocytes % 8.8 % (3.3-12.3); Neutrophils % 68.8 % (41.7-73.7); Nucleated Red Blood Cells % 0.1 % (0-0); Platelets 264 thou/uL (152-406); RBC Red Blood Cell Count 4.26 M/uL (4.33-5.43); Red Cell Distribution Width 13.9 % (12.1-15.2)
[2024-09-13 14:49] LABS: Anion Gap 10.4 mEq/L (5.0-15.0); Potassium 4.4 mEq/L (3.5-5.1); Troponin High Sensitivity 16.7 pg/mL (<58.9)
--- NOTE | 2024-09-13 15:06 | RAD REPORT ---
EXAMINATION: ONE VIEW CHEST XR CLINICAL INDICATION: CHEST PAIN TECHNIQUE: Frontal chest projection is submitted. Examination is limited by patient positioning and t echnique. COMPARISON: 07/29/2024 FINDINGS: The lungs are well inflated and clear. The heart is mildly to moderately involved. No displaced fract ures identified. Aortic atherosclerosis. IMPRESSION: No acute intrathoracic abnormalities.
--- NOTE | 2024-09-13 15:13 | RAD REPORT ---
EXAM: CT brain without contrast HISTORY: HEADACHE COMPARISON: None TECHNIQUE: Multiple contiguous axial images were obtained and a CT of the brain without contrast. Sag ittal and coronal reformats were performed. One or more of the following dose reduction techniques were used: Automated exposure control, adjust ment of the mA and/or kV according to patient size, and/or iterative reconstruction. FINDINGS: No evidence of hydrocephalus, intracranial hemorrhage, or extra-axial fluid collection. Moderate brain atrophy with moderate periventricular and deep white matter chronic microvascular isc hemic changes present. No evidence of midline shift or areas of brain edema. The calvarium is intact. The visualized paranasal sinuses and mastoid air cells are essentially clear . EXAM: CT of the cervical spine without contrast HISTORY: Neck pain, injury HEADACHE TECHNIQUE: Multiple contiguous axial images were obtained in a CT of the cervical spine without contr ast. Sagittal and coronal reformats were performed. FINDINGS: 4 mm anterolisthesis of C7 on T1 and 3-4 mm anterolisthesis of T1 on T2. No evidence of acu te fracture or subluxation.. Moderate mid and lower cervical degenerative changes. No prevertebral soft tissue swelling is seen. Carotid atherosclerosis. The lung apices are unremarkable. COMBINED IMPRESSION: No evidence of acute intracranial abnormality. No evidence of acute osseous abnormality of the cervical spine. Moderate mid and lower cervical degenerative spondylosis.
--- NOTE | 2024-09-13 15:24 | EDPHYS ---
Physician Documentation [facility] Name: Christina Tse Age: 84 yrs Sex: Male : 1940 Arrival Date: 09/13/2024 Time: 14:11 Bed 3 Private MD: ED Physician Fuentes Babcock HPI: 09/13 14:13 This 84 yrs old Male presents to ER via Unassigned with complaints of Neck Pain, >24Hrs kb Old, High Blood Pressure. 14:13 Patient is a 84-year-old gentleman who presents for headache, neck pain, left chest kb pain and high blood pressure. States he had a fall 2 to 3 weeks ago, hit the back of his head and has had headache and neck pain that is progressively getting worse, worse today. States he went to the [place] for evaluation after the fall and they gave him painkillers but did not do any imaging. Reports that while at the [place] his blood pressure cuff fell to the floor, he reached down to get it and felt a pain in his left lateral chest. States that pain got worse today as well. Pain worse with movement palpation. States he checked his blood pressure this morning and it was 212 systolic, came down to 150s but thought that that was too high and something was wrong so he needed to come get checked out.. Historical: - Allergies: 14:18 No Known Allergies; ss - PMHx: 14:18 GERD; Hypertension; ss - PSHx: 14:18 Hip Replacement - Bilateral; Knee Replacement - Bilateral; ss - Immunization history:: Adult Immunizations unknown. - Infectious Disease History:: Denies. - Social history:: Smoking status: Patient denies any tobacco usage or history of. ROS: 14:14 Constitutional: As per HPI kb Exam: 14:14 Constitutional: This is a well developed, well nourished patient who is awake, alert, kb and in no acute distress. Head/Face: Normocephalic, atraumatic. ENT: Moist Mucous membranes Cardiovascular: Regular rate Respiratory: Respirations even and unlabored. No increased work of breathing. Talking in full sentences Abdomen/GI: Soft, non-tender. No distention Skin: Warm, dry with normal turgor. Normal color. MS/ Extremity: Pulses equal, no cyanosis. Neurovascular intact. Full, normal range of motion. Neuro: Awake and alert, GCS 15, oriented to person, place, time, and situation. 14:14 Neck: External neck: tenderness, 14:14 Chest/axilla: Palpation: tenderness, that is moderate, of the left lateral anterior chest, that totally reproduces the patient's complaints, 14:38 ECG was reviewed by the Attending Physician. Vital Signs: 14:15 BP 176 / 96; Pulse 71; Resp 18; Pulse Ox 98% on R/A; Weight 102.06 kg; Height 5 ft. 1 ss in. ; 14:28 BP 167 / 86; Pulse 68; Resp 18; Pulse Ox 98% on R/A; ph 15:20 BP 176 / 81; Pulse 68; Resp 16; Pulse Ox 100% on R/A; jb4 14:15 Body Mass Index 42.51 (102.06 kg, 154.94 cm) ss MDM: 14:12 Medical Screening Exam initiated 14:15 Data reviewed: vital signs, nurses notes. Historians other than the Patient: EMS: [facility]. 15:22 Differential diagnosis: fracture, strain, arrhythmia, abnormal electrolytes. kb Counseling: I had a detailed discussion with the patient and/or guardian regarding the historical points, exam findings, and any diagnostic results supporting the discharge/admit diagnosis, lab results, radiology results, the need for outpatient follow up, a family practitioner, to return to the emergency department if symptoms worsen or persist or if there are any questions or concerns that arise at home. 15:36 Special discussion: I have referred the patient to see his PCP for further evaluation kb of high blood pressure. 09/13 14:12 Order name: Basic Metabolic Panel; Complete Time: 14:49 kb 09/13 14:12 Order name: CBC with Diff; Complete Time: 14:46 kb 09/13 14:12 Order name: Troponin HS; Complete Time: 14:49 kb 09/13 14:12 Order name: XRAY Chest (1 view); Complete Time: 15:06 kb 09/13 14:12 Order name: CT Head C Spine; Complete Time: 15:14 kb 09/13 14:12 Order name: Cardiac monitoring; Complete Time: 14:26 kb 09/13 14:12 Order name: EKG - Nurse/Tech; Complete Time: 14:26 kb 09/13 14:12 Order name: IV Saline Lock; Complete Time: 14:26 kb 09/13 14:12 Order name: Labs collected and sent; Complete Time: : kb 09/13 14:12 Order name: O2 Per Protocol; Complete Time: kb 09/13 14:12 Order name: O2 Sat Monitoring; Complete Time: : kb EC:38 Rate is 65 beats/min. Rhythm is regular. QRS [place] is Normal. DE interval is normal at kb 174 msec. QRS interval is normal at 132 msec. QT interval is normal at 465 msec. Administered Medications: 15:37 Drug: Acetaminophen-Codeine PO (300 mg-30 mg) 1 tablet PO once; RASS on ADMIN: Combtv4, jb4 Very Agttd3, Agttd2, Rstlss1, AlertClm0, Drwsy-1, Lt Sdtn-2, Mod Sdtn-3, Dp Sdtn-4, UnArsble-5 Route: PO; Disposition: 18:41 Co-signature as Attending Physician, Fuentes Babcock MD I reviewed the patient's care rn provided by the Advanced Practice Provider and agree with the diagnosis and treatment plan. Disposition Summary: 09/13/24 15:23 Discharge Ordered Notes: Location: Home kb Condition: Stable kb Diagnosis - Cervicalgia kb - Essential (primary) hypertension kb - chest wall pain kb Followup: kb - With: Emergency Department - When: As needed - Reason: Worsening of condition Followup: kb - With: Private Physician - When: 2 - 3 days - Reason: Recheck today's complaints, Continuance of care, Re-evaluation by your physician Discharge Instructions: - Discharge Summary Sheet kb - Hypertension, Adult, [id number] kb - Muscle Strain, [id number] kb - Managing Your Hypertension kb Forms: - Medication Reconciliation Form kb - Antibiotic Education kb - Prescription Opioid Use kb - Patient Portal Instructions kb - Leadership Thank You Letter kb Signatures: Dispatcher [employer] EDMS Skylar Hay, FREIGHT UNLOADER-C FREIGHT UNLOADER-Ckb Fuentes Babcock MD MD rn Blanchard, Shelby, RN RN Sara Reyes, SHEYLA RN Brian Higgins, RN RN jb4 Corrections: (The following items were deleted from the chart) 14:13 14:13 BASIC METABOLIC PANEL+C.LAB.BRZ ordered. EDMS EDMS 14:13 14:13 CBC+H.LAB.BRZ ordered. EDMS EDMS 14: Troponin High Sensitivity+C.LAB.BRZ ordered. EDMS EDMS : 14:13 Head C Spine MPR Wo Con+CT.RAD.BRZ ordered. EDMS EDMS
--- NOTE | 2024-09-13 15:24 | ER ---
Nurse's Notes [facility] Name: Christina Tse Age: 84 yrs Sex: Male : 1940 Arrival Date: 09/13/2024 Time: 14:11 Bed 3 Private MD: Diagnosis: Cervicalgia;Essential (primary) hypertension;chest wall pain Presentation: 09/13 14:15 Chief complaint: EMS states: neck pain x 3 weeks after a fall from standing that is ss worse today. Pt also is concerned because his systolic blood pressure was reading 212 earlier today. Coronavirus screen: Client denies travel out of the [place] in the last 14 days. Ebola Screen: Patient denies exposure to infectious person. Patient denies travel to an Ebola-affected area in the 21 days before illness onset. Initial Sepsis Screen: Does the patient meet any 2 criteria? No. Patient's initial sepsis screen is negative. Does the patient have a suspected source of infection? No. Patient's initial sepsis screen is negative. Risk Assessment: Do you want to hurt yourself or someone else? Patient reports no desire to harm self or others. Onset of symptoms was August 23, 2024. 14:15 Method Of Arrival: EMS: [facility] 14:15 Acuity: MARK 3 ss Historical: - Allergies: 14:18 No Known Allergies; ss - PMHx: 14:18 GERD; Hypertension; ss - PSHx: 14:18 Hip Replacement - Bilateral; Knee Replacement - Bilateral; ss - Immunization history:: Adult Immunizations unknown. - Infectious Disease History:: Denies. - Social history:: Smoking status: Patient denies any tobacco usage or history of. Screenin:26 [facility] ED Fall Risk Assessment (Adult) History of falling in the last 3 months, ph including since admission No falls in past 3 months (0 pts) Confusion or Disorientation No (0 pts) Intoxicated or Sedated No (0 pts) Impaired Gait No (0 pts) Mobility Assist Device Used Yes (1 pt) Altered Elimination No (0 pt) Score/Fall Risk Level 0 - 2 = Low Risk Oriented to surroundings, Maintained a safe environment, Hourly rounding (assess needs \T\ fall precautionary measures) done. Abuse screen: Denies threats or abuse. Denies injuries from another. Nutritional screening: No deficits noted. Tuberculosis screening: No symptoms or risk factors identified. Assessment: 14:28 General: Appears in no apparent distress. Behavior is calm, cooperative. Pain: ph Complains of pain in chest and neck. Neuro: Level of Consciousness is awake, alert, obeys commands, Oriented to person, place, time, situation. Cardiovascular: Reports chest pain, Capillary refill < 3 seconds in bilateral fingers Patient's skin is warm and dry. Rhythm is sinus rhythm. Respiratory: Airway is patent Respiratory effort is even, unlabored. GI: No signs and/or symptoms were reported involving the gastrointestinal system. Derm: Skin is pink, warm \T\ dry. 15:49 Reassessment: Patient appears in no apparent distress at this time. Patient and/or jb4 family updated on plan of care and expected duration. Pain level reassessed. Patient is alert, oriented x 3, equal unlabored respirations, skin warm/dry/pink. Vital Signs: 14:15 BP 176 / 96; Pulse 71; Resp 18; Pulse Ox 98% on R/A; Weight 102.06 kg; Height 5 ft. 1 ss in. ; 14:28 BP 167 / 86; Pulse 68; Resp 18; Pulse Ox 98% on R/A; ph 15:20 BP 176 / 81; Pulse 68; Resp 16; Pulse Ox 100% on R/A; jb4 14:15 Body Mass Index 42.51 (102.06 kg, 154.94 cm) ss ED Course: 14:12 Patient arrived in ED. 14:12 Skylar Hay, [facility]. kb 14:12 Fuentes Babcock MD is Attending Physician. kb 14:18 Triage completed. ss 14:18 Arm band placed on right wrist. ss 14:27 Patient has correct armband on for positive identification. Bed in low position. Call light in reach. Side rails up X 1. animal health technician on. Pulse ox on. NIBP on. 14:27 Initial lab(s) drawn, by me, sent to lab. EKG done, by ED staff, reviewed by Skylar ARGUELLO. Inserted saline lock: 20 gauge in left antecubital area, using aseptic technique. Blood collected. Flushed with 10 mL NS. 15:05 XRAY Chest (1 view) In Process Unspecified. EDMS 15:05 CT Head C Spine In Process Unspecified. EDMS 15:08 Sara Carreon, RN is Primary Nurse. 15:13 Primary Nurse role handed off by Sara Carreon, SHEYLA jb4 15:13 Brian Farah, RN is Primary Nurse. jb4 15:20 Provided Education on: discharge instructions.. jb4 15:20 No provider procedures requiring assistance completed. IV discontinued, intact, jb4 bleeding controlled, No redness/swelling at site. Pressure dressing applied. Administered Medications: 15:37 Drug: Acetaminophen-Codeine PO (300 mg-30 mg) 1 tablet PO once; RASS on ADMIN: Combtv4, jb4 Very Agttd3, Agttd2, Rstlss1, AlertClm0, Drwsy-1, Lt Sdtn-2, Mod Sdtn-3, Dp Sdtn-4, UnArsble-5 Route: PO; Medication: 14:26 VIS not applicable for this client. ph Outcome: 15:23 Discharge ordered by MD. 15:53 Discharged to [facility] to wait for ride home. jb4 15:53 Condition: stable jb4 15:53 Discharge instructions given to patient, Instructed on discharge instructions, follow up and referral plans. Demonstrated understanding of instructions, follow-up care, 15:54 Patient left the ED. jb4 Signatures: Dispatcher [employer] BONNIENM Skylar Hay, FRATERNITY ADVISER-C FRATERNITY ADVISER-Bhavani Adair, RN RN Sara Carreon, RN RN Brian Farah, RN RN jb
[2024-09-13] MEDS ORDERED: CODEINE 30MG/APAP 300MG TAB ONE (15:32)
[2024-09-13 16:14] VITALS: BP 176/81; O2SAT 100
--- NOTE | 2024-09-14 11:57 | EKG ---
Test Date: 2024-09-13 Test Time: 14:19:29 [employer] Handler: PH MEASUREMENT RESULTS: Intervals: Rate: 65 GA: 174 QRSD: 132 QT: 448 QTc: 465 Bode: P: 49 GA: 174 QRS: 5 T: 11 INTERPRETIVE STATEMENTS: Normal sinus rhythm Right bundle branch block Abnormal ECG Compared to ECG 07/29/2024 14:46:24 No significant changes Electronically Signed On 09-14-24 11:56:24 CDT by Freddie Esteban
== END 2024-09-13 15:54 | disposition home or self-care (01) ==
LOC: ER 14:11
DX: M54.2 Cervicalgia (principal); R07.89 Other chest pain; I10 Essential (primary) hypertension; Z96.643 Presence of artificial hip joint, bilateral; Z96.653 Presence of artificial knee joint, bilateral
CPT/HCPCS: 36415; 70450; 71045; 72125; 80048; 84484; 85025; 93005; 99285